=== PATIENT | female | born 1980 | race Caucasian/White ===

== ENCOUNTER → 2017-11-14 | Outpatient (CLI) | payer OTHER ==
--- NOTE | 2017-11-14 09:38 | XR ---
EXAMINATION TYPE: XR chest 2V DATE OF EXAM: 11/14/2017 COMPARISON: 06/15/2011 TECHNIQUE: PA and lateral views submitted. HISTORY: Shortness of breath FINDINGS: The lungs are clear and there is no pneumothorax, pleural effusion, or focal pneumonia. IMPRESSION: 1. No acute process.
[2017-11-14 09:55] LABS: Basophils # (A) 0.1 k/uL (0-0.2); Basophils % (A) 1 %; Eosinophils # (A) 0.1 k/uL (0-0.7); Eosinophils % (A) 1 %; HCT 44.9 % (34.0-46.0); HGB 15.4 gm/dL (11.4-16.0); Lymphocytes # (A) 2.9 k/uL (1.0-4.8); Lymphocytes % (A) 24 %; MCH 31.2 pg (25.0-35.0); MCHC 34.4 g/dL (31.0-37.0); MCV 90.6 fL (80.0-100.0); Mean Platelet Volume 6.9; Monocytes # (A) 0.6 k/uL (0-1.0); Monocytes % (A) 5 %; Neutrophils # (A) 8.4 k/uL (1.3-7.7); Neutrophils % (A) 69 %; Platelet Count 315 k/uL (150-450); RBC 4.95 m/uL (3.80-5.40); RDW 13.9 % (11.5-15.5); WBC 12.1 k/uL (3.8-10.6)
[2017-11-14 10:31] LABS: ALT 54 U/L (9-52); AST 37 U/L (14-36); Blood Urea Nitrogen 13 mg/dL (7-17)
== END | disposition home or self-care (01) ==
LOC: LABWHC1 08:59
PROVIDERS: ATTEND Physician Assistant Medical
DX: L40.0 Psoriasis vulgaris (principal)
CPT/HCPCS: 36415; 71046; 82565; 84450; 84460; 84520; 85025

== ENCOUNTER → 2018-12-12 | Outpatient (CLI) | payer OTHER ==
--- NOTE | 2018-12-12 15:38 | XR ---
EXAMINATION TYPE: XR chest 2V DATE OF EXAM: 12/12/2018 COMPARISON: NONE HISTORY: L40.0 Psoriasis vulgaris TECHNIQUE: Frontal and lateral views of the chest are obtained. FINDINGS: There is no focal air space opacity, pleural effusion, or pneumothorax seen. The cardiac silhouette size is within normal limits. The osseous structures are intact. IMPRESSION: No acute cardiopulmonary process.
== END | disposition home or self-care (01) ==
LOC: RADXRMAIN 13:34
PROVIDERS: ATTEND Dermatology MOHS-Micrographic Surgery
DX: L40.0 Psoriasis vulgaris (principal)
CPT/HCPCS: 71046

== ENCOUNTER → 2020-10-18 | Outpatient (CLI) | payer OTHER ==
[2020-10-18 12:02] LABS: Basophils # (A) 0.1 k/uL (0-0.2); Basophils % (A) 1 %; Eosinophils # (A) 0.1 k/uL (0-0.7); Eosinophils % (A) 1 %; HCT 42.8 % (34.0-46.0); HGB 14.3 gm/dL (11.4-16.0); Lymphocytes # (A) 2.4 k/uL (1.0-4.8); Lymphocytes % (A) 23 %; MCH 28.7 pg (25.0-35.0); MCHC 33.5 g/dL (31.0-37.0); MCV 85.7 fL (80.0-100.0); Mean Platelet Volume 6.5; Monocytes # (A) 0.5 k/uL (0-1.0); Monocytes % (A) 5 %; Neutrophils # (A) 7.4 k/uL (1.3-7.7); Neutrophils % (A) 70 %; Platelet Count 370 k/uL (150-450); RDW 14.3 % (11.5-15.5); WBC 10.6 k/uL (3.8-10.6)
[2020-10-18 16:09] LABS: Non-African American GFR(CKD) 79.4 (60.0-200.0)
== END | disposition home or self-care (01) ==
LOC: LABWHC1 09:45
PROVIDERS: ATTEND Physician Assistant Medical
DX: L40.0 Psoriasis vulgaris (principal)
CPT/HCPCS: 36415; 82565; 84450; 84460; 85025

== ENCOUNTER → 2021-02-21 | Outpatient (CLI) | payer OTHER ==
[2021-02-21 20:58] LABS: Basophils # (A) 0.05 X 10*3/uL (0.00-0.10); Basophils % (A) 0.5 %; Eosinophils % (A) 0.9 %; HCT 40.8 % (37.2-46.3); HGB 12.4 g/dL (12.0-15.0); Lymphocytes # (A) 1.69 X 10*3/uL (0.90-5.00); Lymphocytes % (A) 15.8 %; MCHC 30.4 g/dL (32.0-37.0); MCV 85.5 fL (80.0-97.0); Mean Platelet Volume 9.3 fL (9.5-12.2); Monocytes # (A) 0.67 X 10*3/uL (0.20-1.00); Monocytes % (A) 6.3 %; Neutrophils # (A) 8.04 X 10*3/uL (1.80-7.70); Neutrophils % (A) 75.4 %; Platelet Count 349 X 10*3/uL (140-440); RBC 4.77 X 10*6/uL (4.10-5.20); RDW 14.4 % (11.5-14.5); WBC 10.67 X 10*3/uL (4.50-10.00)
[2021-02-22 19:13] LABS: Non-African American GFR(CKD) 69.9 (60.0-200.0)
== END | disposition home or self-care (01) ==
LOC: LABWHC1 10:28
PROVIDERS: ATTEND Physician Assistant Medical
DX: L40.0 Psoriasis vulgaris (principal)
CPT/HCPCS: 36415; 82565; 84450; 84460; 85025; 86480

== ENCOUNTER 2021-07-21 15:37 | Inpatient (IN) | payer OTHER ==
--- NOTE | 2021-07-21 16:42 | ED ---
General Adult HPI - General Chief complaint: Abdominal Pain Stated complaint: abd issues Time Seen by Provider: 07/21/21 16:26 Source: patient, family (mother), RN notes reviewed, old records reviewed Mode of arrival: ambulatory - History of Present Illness Initial comments: This is a 41-year-old well-appearing, alert and oriented 4, white female that presents to the emergency room with her mother. Patient states that she's had abdominal swelling for the past couple of week. Her mother states she does have some cognitive impairment but she does live alone. She also states that in the past has been told she has a fatty liver. She denies any medical history or medications on a daily basis. She does not drink alcohol on a daily basis. She denies any abdominal pain, dysuria or fevers. She states her last bowel movement was today. Mom states that she was complaining of diarrhea since April on and off. She states that her position of comfort is semi-reclined position to help her breathe related to the abdominal swelling. -: week(s) (2) Location: abdomen Radiation: non-radiation Severity scale (1-10): 0 Consistency: constant Associated Symptoms: denies other symptoms Treatments Prior to Arrival: none - Related Data Home Medications Medication Instructions Recorded Confirmed Dulaglutide [Trulicity] 0.75 mg SQ Q7D 07/21/21 07/21/21 Risankizumab-Rzaa [Skyrizi] 150 mg SQ Q84D 07/21/21 07/21/21 Allergies Allergy/AdvReac Type Severity Reaction Status Date / Time succinylcholine Allergy Family Verified 07/21/21 18:56 History Review of Systems ROS Statement: Those systems with pertinent positive or pertinent negative responses have been documented in the HPI. ROS Other: All systems not noted in ROS Statement are negative. Past Medical History Past Medical History: Diabetes Mellitus, Skin Disorder History of Any Multi-Drug Resistant Organisms: None Reported Past Surgical History: Adenoidectomy, Tonsillectomy Past Anesthesia/Blood Transfusion Reactions: No Reported Reaction Past Psychological History: No Psychological Hx Reported General Exam Limitations: no limitations General appearance: alert, in no apparent distress Head exam: Present: atraumatic, normocephalic, normal inspection Eye exam: Present: normal appearance, PERRL, EOMI. Absent: scleral icterus, conjunctival injection, periorbital swelling ENT exam: Present: normal exam, normal oropharynx, mucous membranes moist Neck exam: Present: normal inspection, full ROM. Absent: tenderness, meningismus, lymphadenopathy Respiratory exam: Present: normal lung sounds bilaterally. Absent: respiratory distress, wheezes, rales, rhonchi, stridor, chest wall tenderness, accessory muscle use, decreased breath sounds Cardiovascular Exam: Present: tachycardia, normal heart sounds GI/Abdominal exam: Present: distended, other (Tympanic). Absent: tenderness, guarding, rebound, rigid, mass Extremities exam: Present: normal inspection, full ROM, normal capillary refill. Absent: tenderness, pedal edema, joint swelling, calf tenderness Back exam: Present: normal inspection, full ROM. Absent: tenderness, CVA tenderness (R), CVA tenderness (L) Neurological exam: Present: alert, oriented X3, CN II-XII intact Psychiatric exam: Present: normal affect, normal mood Skin exam: Present: warm, dry, intact, normal color. Absent: rash, cyanosis, diaphoretic, petechiae, pallor Course Vital Signs 07/21/21 07/21/21 07/21/21 15:54 17:46 19:14 Temperature 97.5 F L Pulse Rate 118 H 97 110 H Respiratory 16 18 18 Rate Blood Pressure 112/80 130/88 125/99 O2 Sat by Pulse 92 L 98 99 Oximetry EKG Findings - EKG Results: EKG: sinus rhythm (Ventricular rate of 118, MA interval 0.158, QRS of 0.120, QTC of 0.531 ; no old ekg) Medical Decision Making - Medical Decision Making Patient's glucose level is 232, lactic acid is 2.3 and she was given 1 L of normal saline. CT the abdomen shows a dilated large bowel consistent with a mechanical large bowel obstruction due to stricture or tumor at the junction of the descending colon and sigmoid colon, large bowel dilated to 12.5 cm. Case discussed with Dr. Lentz who requested antibiotics be started and NG tube placed. RN states that NG tube had clear fluid returned. - Lab Data Result diagrams: 07/21/21 16:51 07/21/21 16:51 Lab Results 07/21/21 07/21/21 07/21/21 Range/Units 16:51 16:51 16:51 WBC 9.7 (3.8-10.6) k/uL RBC 5.32 (3.80-5.40) m/uL Hgb 14.4 (11.4-16.0) gm/dL Hct 44.6 (34.0-46.0) % MCV 83.7 (80.0-100.0) fL MCH 27.0 (25.0-35.0) pg MCHC 32.3 (31.0-37.0) g/dL RDW 15.6 H (11.5-15.5) % Plt Count 342 (150-450) k/uL MPV 6.8 Neutrophils % 72 % Lymphocytes % 18 % Monocytes % 7 % Eosinophils % 0 % Basophils % 0 % Neutrophils # 7.0 (1.3-7.7) k/uL Lymphocytes # 1.8 (1.0-4.8) k/uL Monocytes # 0.7 (0-1.0) k/uL Eosinophils # 0.0 (0-0.7) k/uL Basophils # 0.0 (0-0.2) k/uL PT 10.2 (9.0-12.0) sec INR 0.9 (<1.2) APTT 20.8 L (22.0-30.0) sec Sodium 136 L (137-145) mmol/L Potassium 3.4 L (3.5-5.1) mmol/L Chloride 100 (98-107) mmol/L Carbon Dioxide 24 (22-30) mmol/L Anion Gap 12 mmol/L BUN 7 (7-17) mg/dL Creatinine 0.82 (0.52-1.04) mg/dL Est GFR (CKD-EPI)AfAm >90 (>60 ml/min/1.73 sqM) Est GFR (CKD-EPI)NonAf 89 (>60 ml/min/1.73 sqM) Glucose 232 H (74-99) mg/dL Lactic Ac Sepsis Rflx Plasma Lactic Acid Vicente (0.7-2.0) mmol/L Calcium 10.5 H (8.4-10.2) mg/dL Total Bilirubin 0.7 (0.2-1.3) mg/dL AST 33 (14-36) U/L ALT 20 (4-34) U/L Alkaline Phosphatase 64 (38-126) U/L Troponin I (0.000-0.034) ng/mL Total Protein 7.4 (6.3-8.2) g/dL Albumin 4.2 (3.5-5.0) g/dL Amylase 67 (30-110) U/L Lipase 215 (23-300) U/L 07/21/21 07/21/21 07/21/21 Range/Units 16:51 16:51 17:18 WBC (3.8-10.6) k/uL RBC (3.80-5.40) m/uL Hgb (11.4-16.0) gm/dL Hct (34.0-46.0) % MCV (80.0-100.0) fL MCH (25.0-35.0) pg MCHC (31.0-37.0) g/dL RDW (11.5-15.5) % Plt Count (150-450) k/uL MPV Neutrophils % % Lymphocytes % % Monocytes % % Eosinophils % % Basophils % % Neutrophils # (1.3-7.7) k/uL Lymphocytes # (1.0-4.8) k/uL Monocytes # (0-1.0) k/uL Eosinophils # (0-0.7) k/uL Basophils # (0-0.2) k/uL PT (9.0-12.0) sec INR (<1.2) APTT (22.0-30.0) sec Sodium (137-145) mmol/L Potassium (3.5-5.1) mmol/L Chloride (98-107) mmol/L Carbon Dioxide (22-30) mmol/L Anion Gap mmol/L BUN (7-17) mg/dL Creatinine (0.52-1.04) mg/dL Est GFR (CKD-EPI)AfAm (>60 ml/min/1.73 sqM) Est GFR (CKD-EPI)NonAf (>60 ml/min/1.73 sqM) Glucose (74-99) mg/dL Lactic Ac Sepsis Rflx Y Plasma Lactic Acid Vicente 2.3 H* (0.7-2.0) mmol/L Calcium (8.4-10.2) mg/dL Total Bilirubin (0.2-1.3) mg/dL AST (14-36) U/L ALT (4-34) U/L Alkaline Phosphatase (38-126) U/L Troponin I <0.012 (0.000-0.034) ng/mL Total Protein (6.3-8.2) g/dL Albumin (3.5-5.0) g/dL Amylase (30-110) U/L Lipase (23-300) U/L Disposition Clinical Impression: Large bowel obstruction Disposition: ADMITTED IP TO THIS [facility] Condition: Fair Decision Date: 07/21/21 Decision Time: 18:27
[2021-07-21 17:01] LABS: Basophils % (A) 0 %; Eosinophils % (A) 0 %; HCT 44.6 % (34.0-46.0); HGB 14.4 gm/dL (11.4-16.0); Lymphocytes # (A) 1.8 k/uL (1.0-4.8); Lymphocytes % (A) 18 %; MCHC 32.3 g/dL (31.0-37.0); MCV 83.7 fL (80.0-100.0); Mean Platelet Volume 6.8; Monocytes # (A) 0.7 k/uL (0-1.0); Monocytes % (A) 7 %; Neutrophils % (A) 72 %; Platelet Count 342 k/uL (150-450); RBC 5.32 m/uL (3.80-5.40); RDW 15.6 % (11.5-15.5); WBC 9.7 k/uL (3.8-10.6)
[2021-07-21 17:10] LABS: ALT 20 U/L (4-34); AST 33 U/L (14-36); African American GFR (CKD) >90 (>60 ml/min/1.73 sqM); Albumin 4.2 g/dL (3.5-5.0); Alkaline Phosphatase 64 U/L (38-126); Amylase 67 U/L (30-110); Anion Gap 12 mmol/L; Blood Urea Nitrogen 7 mg/dL (7-17); Calcium 10.5 mg/dL (8.4-10.2); Carbon Dioxide 24 mmol/L (22-30); Chloride 100 mmol/L (98-107); Glucose 232 mg/dL (74-99); Lipase 215 U/L (23-300); Non-African American GFR(CKD) 89 (>60 ml/min/1.73 sqM); Potassium 3.4 mmol/L (3.5-5.1); Sodium 136 mmol/L (137-145); Total Bilirubin 0.7 mg/dL (0.2-1.3); Total Protein 7.4 g/dL (6.3-8.2)
[2021-07-21] MEDS ORDERED: SODIUM CHLORIDE 0.9% 1,000 ML IV ONE (17:19)
[2021-07-21 17:28] LABS: INR 0.9 (<1.2); Prothrombin Time 10.2 sec (9.0-12.0)
[2021-07-21 17:36] LABS: Partial Thromboplastin Time 20.8 sec (22.0-30.0)
--- NOTE | 2021-07-21 18:15 | CT ---
EXAMINATION TYPE: CT abdomen pelvis wo con DATE OF EXAM: 07/21/2021 COMPARISON: August 05, 2014 HISTORY: abdominal pain, bloating CT DLP: 739 mGycm Automated exposure control for dose reduction was used. Images obtained from the diaphragm to the floor the pelvis with no contrast. FINDINGS: Lung bases are clear. There is no pleural effusion. Heart size is fairly normal. There is no pericard ial effusion. Liver spleen stomach pancreas appear intact. Bile ducts are not dilated. Gallbladder no t well seen. The bile ducts are not dilated. There is no adrenal mass. Kidneys have normal size. There is no hydronephrosis. Ureters are not dilat ed. There is no retroperitoneal adenopathy. Bladder distends smoothly. Uterus is anteverted. There is no free fluid in the pelvis. There are markedly dilated air and fluid-filled large bowel loops throughout the abdomen extending to the distal descending colon. There is transition point. The sigmoid colon has normal size. There is luminal narrowing at the junction between descending colon and sigmoid colon. Small bowel is somewhat distended. There is no evidence of free air. There is no ascites. Appendix is not seen. There is no sign of thickened appendix. Bony structures are intact. There is a first-degre e L5-S1 spondylolisthesis. There is L5 spondylolysis. The exam is limited by motion in the pelvis. IMPRESSION: Dilated large bowel consistent with mechanical large bowel obstruction due to stricture or tumor at t he junction of the descending colon and sigmoid colon. Large bowel dilated up to 12.5 cm.
[2021-07-21] MEDS ORDERED: PIPERACILLIN-TAZOBACTAM 3.375 GM in SODIUM CHLORIDE 0.9% 100 ML IVPB STA (18:26)
[2021-07-21] MEDS ORDERED: NALOXONE 0.4 MG/ML 1 ML VIAL IV PRN (18:28)
[2021-07-21] MEDS ORDERED: ONDANSETRON 4 MG/2 ML VIAL IVP PRN (18:47)
[2021-07-21] MEDS ORDERED: diphenhydrAMINE 50 MG/ML 1 ML VIAL IVP STA (20:10)
[2021-07-21] MEDS: SODIUM CHLORIDE 0.9% 1,000 ML IV SCH (20:28)
[2021-07-22] MEDS: SODIUM CHLORIDE 0.9% 1,000 ML IV SCH ×3 (04:56→17:00)
[2021-07-22] MEDS: INSULIN ASPART (NovoLOG) 100 UNIT/ML VIAL SQ SCH ×3 (06:59→16:49)
[2021-07-22] MEDS ORDERED: diphenhydrAMINE 50 MG/ML 1 ML VIAL IVP PRN (10:57)
[2021-07-22 11:35] LABS: Glucose,Whole Blood 152 mg/dL (75-99)
--- NOTE | 2021-07-22 11:39 | P.GSHP ---
History of Present Illness H&P Date: 07/22/21 Chief Complaint: Colon obstruction This a 41-year-old female who describes a several month history of intermittent colonic obstruction. Patient finally presented to emergency room with complaints of abdominal distention. She is found have a colonic obstruction with a probable obstructing lesion at the left colon. Patient denies any abdominal pain she has some complaints of GERD. Past Medical History Past Medical History: Diabetes Mellitus, Skin Disorder History of Any Multi-Drug Resistant Organisms: None Reported Past Surgical History: Adenoidectomy, Tonsillectomy Past Anesthesia/Blood Transfusion Reactions: No Reported Reaction Past Psychological History: No Psychological Hx Reported Smoking Status: Never smoker Past Alcohol Use History: None Reported Past Drug Use History: None Reported Medications and Allergies Home Medications Medication Instructions Recorded Confirmed Type Dulaglutide [Trulicity] 0.75 mg SQ Q7D 07/21/21 07/21/21 History Risankizumab-Rzaa [Skyrizi] 150 mg SQ Q84D 07/21/21 07/21/21 History Allergies Allergy/AdvReac Type Severity Reaction Status Date / Time succinylcholine Allergy Family Verified 07/21/21 18:56 History Surgical - Exam Vital Signs Temp Pulse Resp BP Pulse Ox 97.5 F L 118 H 16 112/80 92 L 07/21/21 15:54 07/21/21 15:54 07/21/21 15:54 07/21/21 15:54 07/21/21 15:54 - General well developed, well nourished, no distress - Eyes PERRL - ENT normal pinna - Neck no masses - Respiratory normal expansion - Cardiovascular Rhythm: regular - Abdomen Distended no peritoneal signs. No acute abdomen. Results - Labs 07/21/21 16:51 07/21/21 16:51 Abnormal Lab Results - Last 24 Hours (Table) 07/21/21 07/21/21 07/21/21 Range/Units 16:51 16:51 16:51 RDW 15.6 H (11.5-15.5) % APTT 20.8 L (22.0-30.0) sec Sodium 136 L (137-145) mmol/L Potassium 3.4 L (3.5-5.1) mmol/L Glucose 232 H (74-99) mg/dL POC Glucose (mg/dL) (75-99) mg/dL Plasma Lactic Acid Vicente (0.7-2.0) mmol/L Calcium 10.5 H (8.4-10.2) mg/dL 07/21/21 07/21/21 07/22/21 Range/Units 16:51 20:07 11:33 RDW (11.5-15.5) % APTT (22.0-30.0) sec Sodium (137-145) mmol/L Potassium (3.5-5.1) mmol/L Glucose (74-99) mg/dL POC Glucose (mg/dL) 152 H (75-99) mg/dL Plasma Lactic Acid Vicente 2.3 H* 2.5 H* (0.7-2.0) mmol/L Calcium (8.4-10.2) mg/dL Diabetes panel 07/21/21 Range/Units 16:51 Sodium 136 L (137-145) mmol/L Potassium 3.4 L (3.5-5.1) mmol/L Chloride 100 (98-107) mmol/L Carbon Dioxide 24 (22-30) mmol/L BUN 7 (7-17) mg/dL Creatinine 0.82 (0.52-1.04) mg/dL Glucose 232 H (74-99) mg/dL Calcium 10.5 H (8.4-10.2) mg/dL AST 33 (14-36) U/L ALT 20 (4-34) U/L Alkaline Phosphatase 64 (38-126) U/L Total Protein 7.4 (6.3-8.2) g/dL Albumin 4.2 (3.5-5.0) g/dL Calcium panel 07/21/21 Range/Units 16:51 Calcium 10.5 H (8.4-10.2) mg/dL Albumin 4.2 (3.5-5.0) g/dL Pituitary panel 07/21/21 Range/Units 16:51 Sodium 136 L (137-145) mmol/L Potassium 3.4 L (3.5-5.1) mmol/L Chloride 100 (98-107) mmol/L Carbon Dioxide 24 (22-30) mmol/L BUN 7 (7-17) mg/dL Creatinine 0.82 (0.52-1.04) mg/dL Glucose 232 H (74-99) mg/dL Calcium 10.5 H (8.4-10.2) mg/dL Adrenal panel 07/21/21 Range/Units 16:51 Sodium 136 L (137-145) mmol/L Potassium 3.4 L (3.5-5.1) mmol/L Chloride 100 (98-107) mmol/L Carbon Dioxide 24 (22-30) mmol/L BUN 7 (7-17) mg/dL Creatinine 0.82 (0.52-1.04) mg/dL Glucose 232 H (74-99) mg/dL Calcium 10.5 H (8.4-10.2) mg/dL Total Bilirubin 0.7 (0.2-1.3) mg/dL AST 33 (14-36) U/L ALT 20 (4-34) U/L Alkaline Phosphatase 64 (38-126) U/L Total Protein 7.4 (6.3-8.2) g/dL Albumin 4.2 (3.5-5.0) g/dL Assessment and Plan Assessment: Abdominal distention most likely a colonic obstruction. Patient will undergo exploratory laparotomy and possible colon resection and colostomy tomorrow
[2021-07-22] MEDS: PANTOPRAZOLE 40 MG/10 ML VIAL IVP SCH ×2 (11:58→20:24)
--- NOTE | 2021-07-22 15:34 | XR ---
EXAMINATION TYPE: XR chest 1V DATE OF EXAM: 07/22/2021 COMPARISON: 12/12/2018 HISTORY: Preop TECHNIQUE: Dual view FINDINGS: Heart and mediastinum are normal. Lungs are clear of consolidation. There is some small sadia ear density left lung base. There is nasogastric tube with the tip over the mid thoracic spine. IMPRESSION: NG tube has tip in the midesophagus. Minimal subsegmental atelectasis at the left lung ba se is new compared to old exam.
[2021-07-22 16:40] LABS: Glucose,Whole Blood 162 mg/dL (75-99)
[2021-07-22] MEDS ORDERED: BENZOCAINE SPRAY 1 CAN MUCOUS MEM PRN (18:00)
[2021-07-22] MEDS ORDERED: SODIUM CHLORIDE 0.9% 1,000 ML with POTASSIUM CHLORIDE 20 MEQ IV SCH ×2 (18:30)
--- NOTE | 2021-07-22 18:51 | CONS ---
CONSULTATION DATE OF SERVICE: 07/22/2021 REASON FOR CONSULTATION: Advice regarding diabetes and other multiple medical issues requested by Dr. Lentz. HISTORY OF PRESENT ILLNESS: This 41-year-old woman with a past history of diabetes mellitus, skin disorders, appendectomy, tonsillectomy, being followed by Dr. Hall in the outpatient setting has also had some psychiatric issues also. The patient needed some help and the patient is complaining of intermittent chronic obstruction for the last few months and subsequently patient had significant abdominal distention and the mother noticed that the patient was taken to [facility] Emergency Room and was admitted for evaluation and treatment. In the emergency room, the sodium was 130, potassium 5.5. is normal. Blood sugars 232 and calcium is 10.8 indicates some dehydration. Covid 19 is negative. The patient also had abdominal pelvis CT scan which I reviewed personally which showed dilated large bowel consistent with mechanical large bowel obstruction due to stricture or tumor at the junction of the descending and as well as sigmoid colon, large bowel dilated 12.5 cm. Patient admitted for further evaluation and treatment. A chest x-ray was also done which was reviewed personally by me showed NG otherwise mild subsegmental atelectasis in the left lung base and the EKG showed right bundle branch block. There is no history of fever, rigors. No history of headache, loss of consciousness, seizures at this time. PAST MEDICAL HISTORY: History of diabetes, history of skin disorder, history of tonsillectomy. MEDICATIONS: Prior to admission include Skirizi 150 mg Q 84 days. Trulicity 0.7 mg subcu 7 days. ALLERGIES: SUCCINYL CHOLINE. FAMILY HISTORY: No history of heart disease or strokes in the family. SOCIAL HISTORY: No history of smoking. No history of alcohol intake. REVIEW OF SYSTEMS: ENT: No diminished hearing. No diminished vision. CARDIOVASCULAR system: No angina or palpitations. RESPIRATORY: No cough. GI: As mentioned earlier. no dysuria. NERVOUS SYSTEM: No numbness or weakness. ALLERGY/IMMUNOLOGY: No asthma or hayfever. MUSCULOSKELETAL: As mentioned earlier. HEMATOLOGY/ONCOLOGY: No history of anemia. ENDOCRINE: Diabetes. CONSTITUTIONAL: As mentioned earlier. DERMATOLOGY: Negative. RHEUMATOLOGY: Negative. PSYCHIATRIC: As mentioned earlier. PHYSICAL EXAMINATION: Alert and oriented times three. Pulse 110, blood pressure 120/94, respiration 18, temperature 97.2, pulse ox 98% on room air. HEENT: Conjunctivae normal. Oral mucosa moist. NECK is no jugular venous distention. No carotid bruit. No lymph node enlargement. CARDIOVASCULAR system: S1, S2. No S3, no S4. RESPIRATORY: Breath sounds diminished in the bases. A few scattered rhonchi. ABDOMEN: Soft. Significant distention present and minimal diffuse discomfort. No guarding. No rigidity. No mass palpable. Bowel sounds diminished. LEGS: No edema. No swelling. NERVOUS SYSTEM: Higher functions as mentioned earlier. Moves all four limbs. No focal motor or sensory deficits. LYMPHATICS: No lymph nodes palpable in the neck, axillae or groin. SKIN: No ulcer, no rash and no bleeding. JOINTS: No active deforming arthropathy. LABS: WBC 9.7, hemoglobin 14.4, sodium 130, potassium 3.5. ASSESSMENT: 1. Acute large bowel obstruction possibly secondary to stricture, rule out tumor. 2. Hyponatremia. 3. Hyperkalemia. 4. Diabetes mellitus type 2 uncontrolled with hyperglycemia. 5. Dehydration, present on admission. 6. Hypercalcemia secondary to dehydration possibly. 7. Left lung atelectasis. 8. History of skin disorder. 9. History of tonsillectomy. 10.FULL CODE. RECOMMENDATIONS AND DISCUSSION: This 41-year-old woman who presented with multiple complex medical issues, at this time, I recommend continue the current medications, continue symptomatic treatment. Surgery is planning surgery tomorrow and we will monitor the blood sugars closely, which is improving. I recommend DVT prophylaxis. Incentive spirometry. Otherwise, proton pump inhibitors. We will follow the patient closely p.r.n. The patient may be asked to follow up with Dr. Hall after discharge. Incentive spirometry and further recommendations the patient follow. Thank you Dr. Lentz for letting us participate in the care of this patient. MMODL / IJN: [id number] / BLOSSOM
[2021-07-22] MEDS: HEPARIN SODIUM,PORCINE/PF 5,000 UNIT/0.5 ML SYRINGE SQ SCH (20:24)
[2021-07-23 00:01] LABS: Glucose,Whole Blood 155 mg/dL (75-99)
[2021-07-23] MEDS: INSULIN ASPART (NovoLOG) 100 UNIT/ML VIAL SQ SCH ×5 (00:12→23:32)
[2021-07-23] MEDS ORDERED: 0.9% NACL WITH KCL 20 MEQ/L 1,000 ML IV SCH (02:24)
[2021-07-23 05:52] LABS: Glucose,Whole Blood 215 mg/dL (75-99)
[2021-07-23] MEDS: HEPARIN SODIUM,PORCINE/PF 5,000 UNIT/0.5 ML SYRINGE SQ SCH ×2 (06:40→22:00)
[2021-07-23] MEDS: PANTOPRAZOLE 40 MG/10 ML VIAL IVP SCH ×2 (07:11→22:01)
[2021-07-23] MEDS ORDERED: ROCURONIUM 10 MG/ML (5 ML VIAL) IV ONE (08:25)
[2021-07-23] MEDS ORDERED: fentaNYL (PF) 50 MCG/ML 2 ML AMP ONE (08:25)
[2021-07-23] MEDS ORDERED: HYDROmorphone (PF) 1 MG/ML ONE (08:25)
[2021-07-23] MEDS ORDERED: NEOSTIGMINE 1 MG/ML 10 ML VIAL ONE (08:25)
[2021-07-23] MEDS ORDERED: GLYCOPYRROLATE 0.2 MG/ML 2 ML VIAL ONE (08:25)
[2021-07-23] MEDS ORDERED: PROPOFOL 10 MG/ML 20 ML VIAL IV ONE (08:25)
[2021-07-23] MEDS ORDERED: IV FLUID CONTINUATION 1,000 ML IV ONE (08:25)
[2021-07-23] MEDS ORDERED: LACTATED RINGERS 1,000 ML IV ONE ×2 (08:35→09:52)
[2021-07-23] MEDS ORDERED: BENZOCAINE/MENTHOL LOZENG 1 EACH LOZENGE MUCOUS MEM PRN (10:05)
--- NOTE | 2021-07-23 10:25 | P.OP ---
Date of Procedure: 07/23/21 Preoperative Diagnosis: Colonic obstruction Postoperative Diagnosis: Clot obstruction due to mass/stricture of left colon Procedure(s) Performed: Partial colectomy N colostomy Takedown of splenic flexure Anesthesia: MICHELLE Surgeon: Jerry Lentz Estimated Blood Loss (ml): 10 Pathology: other (Left colon) Condition: stable Disposition: PACU Description of Procedure: The patient's placed on the operating table in the supine position. She received general endotracheal anesthesia. Her abdomen was prepped and draped usual fashion. The abdomen was entered through a midline incision. A Bookwalter tract with wound. The colon was grossly distended. A colotomy was made in the colon decompressed the colon and then the colotomy was repaired using the TX 60 stapler. The left colon was visualized. The left colon appeared to be obstructing lesion in the area of the descending and distal left colon. The colon was mobilized and then the colon was then transected using the ANNA stapler proximal distally. The mesentery the bowel was divided using the Enseal device. Subsequent to pathology. The suture tag was placed in the proximal end of the colon. Next the splenic flexure was mobilized using the Enseal device. The colon was fully mobilized. And then the suitable spot for the colostomy in the left abdominal wall was chosen. The fascia was closed with looped #1 PDS suture. The colostomy site was then matured using 3-0 Vicryl suture. Sterile dressings was applied. Patient top she will well and sent to recovery room stable condition.
--- NOTE | 2021-07-23 10:28 | XR ---
EXAMINATION TYPE: XR chest 1V portable DATE OF EXAM: 07/23/2021 Comparison: 07/22/2021 Clinical History: 41-year-old female NEW CENTRAL LINE Findings: Right CVC tip at the lower right atrium. NG tube courses below the diaphragm. Low lung volumes with c ardiovascular markings. Interstitial densities increased as is patchy retrocardiac and left basilar o pacity. Heart borderline enlarged. No sizable effusion. Impression: 1. Right IJ CVC tip low at the inferior right atrium. 2. Worsening hypoventilatory changes. 3. Worsening interstitial density could be due to the low lung volumes. Correlate to exclude developi ng mild pulmonary vascular congestion. 3. Increased retrocardiac/left basilar atelectasis versus developing infiltrate.
[2021-07-23] MEDS ORDERED: SODIUM CHLORIDE 0.9% 1,000 ML IV ONE ×3 (10:30→10:31)
[2021-07-23 11:33] LABS: Glucose,Whole Blood 200 mg/dL (75-99)
[2021-07-23 11:53] LABS: African American GFR (CKD) 91.4 (60.0-200.0); Anion Gap 12.9 mmol/L (4.00-12.00); BUN/Creat Ratio 15.56 Ratio (12.00-20.00); Calcium 9.4 mg/dL (8.7-10.3); Carbon Dioxide 23.1 mmol/L (21.6-31.8); Non-African American GFR(CKD) 78.9 (60.0-200.0); Potassium 3.7 mmol/L (3.5-5.5)
[2021-07-23] MEDS: D5-0.45% NACL WITH KCL 20MEQ/L 1,000 ML IV SCH ×3 (12:17→22:10)
[2021-07-23 12:49] LABS: Basophils # (A) 0.03 X 10*3/uL (0.00-0.10); Basophils % (A) 0.3 %; Eosinophils # (A) 0.07 X 10*3/uL (0.04-0.35); Eosinophils % (A) 0.6 %; HCT 42.1 % (37.2-46.3); Lymphocytes # (A) 1.61 X 10*3/uL (0.90-5.00); Lymphocytes % (A) 14.6 %; MCH 26.7 pg (27.0-32.0); MCHC 30.9 g/dL (32.0-37.0); MCV 86.6 fL (80.0-97.0); Mean Platelet Volume 9.6 fL (9.5-12.2); Monocytes # (A) 0.93 X 10*3/uL (0.20-1.00); Monocytes % (A) 8.4 %; Neutrophils # (A) 8.32 X 10*3/uL (1.80-7.70); Neutrophils % (A) 75.4 %; Platelet Count 307 X 10*3/uL (140-440); RBC 4.86 X 10*6/uL (4.10-5.20); RDW 16.7 % (11.5-14.5); WBC 11.04 X 10*3/uL (4.50-10.00)
[2021-07-23] MEDS ORDERED: HEPARIN SODIUM,PORCINE/PF 5,000 UNIT/0.5 ML SYRINGE SQ SCH (16:00)
[2021-07-23 16:26] LABS: Glucose,Whole Blood 211 mg/dL (75-99)
--- NOTE | 2021-07-23 20:37 | PN ---
PROGRESS NOTE DATE OF SERVICE: 07/23/2021 This 41-year-old woman who was admitted with acute large bowel obstruction possibly secondary to stricture, had exploratory laparotomy by Dr. Lentz who found that colonic obstruction due to mass within the left colon in the area of descending and distal left colon, the patient underwent takedown splenic flexure and partial colectomy and colostomy. No chest pain. No palpitations. No fever. The patient has an NG tube. Patient is rather drowsy postop. PHYSICAL EXAMINATION: Pulse is 117. Blood pressure 133/80, respiration 20, temperature normal, pulse ox 94% on 3 L. HEENT: Conjunctivae normal. NECK: No JVD. CARDIOVASCULAR: S1, S2 muffled. RESPIRATORY: Breath sounds diminished in the bases. A few scattered rhonchi. ABDOMEN: Soft. Status post surgery. LEGS are no edema. No swelling. NERVOUS SYSTEM: No focal deficits. LAB STUDIES: WBC 7.04, sodium 143, potassium 3.7. Accu-Cheks are 211. ASSESSMENT: 1. Acute bowel obstruction with possible distal colonic obstruction status post exploratory laparotomy, partial colectomy and colostomy and takedown of splenic flexure. 2. Possible tachycardia. 3. Hyponatremia. 4. Hyperkalemia. 5. Diabetes mellitus type 2 uncontrolled with hyperglycemia previously. 6. Dehydration, present on admission. 7. Hypercalcemia secondary to dehydration possibly present on admission. 8. Left lung atelectasis. 9. History of skin disorder. 10.History of tonsillectomy. 11.FULL CODE. RECOMMENDATIONS AND DISCUSSION: I recommend to continue current medications, management and symptomatic treatment. Repeat labs. Incentive spirometry. DVT prophylaxis. Pain medications. Closely follow with surgery. Further recommendations to follow. MMODL / IJN: [id number] /
[2021-07-23] MEDS: KETOROLAC 15 MG/ML 1 ML VIAL IVP PRN (22:18)
[2021-07-23 23:29] LABS: Glucose,Whole Blood 161 mg/dL (75-99)
[2021-07-24 06:11] LABS: Glucose,Whole Blood 212 mg/dL (75-99)
[2021-07-24] MEDS: INSULIN ASPART (NovoLOG) 100 UNIT/ML VIAL SQ SCH ×3 (06:27→18:19)
[2021-07-24] MEDS: PANTOPRAZOLE 40 MG/10 ML VIAL IVP SCH ×2 (07:13→20:25)
[2021-07-24] MEDS: KETOROLAC 15 MG/ML 1 ML VIAL IVP PRN ×3 (07:23→22:02)
[2021-07-24 08:00] LABS: African American GFR (CKD) >90 (>60 ml/min/1.73 sqM); Anion Gap 6 mmol/L; Blood Urea Nitrogen 10 mg/dL (7-17); Carbon Dioxide 22 mmol/L (22-30); Chloride 109 mmol/L (98-107); Glucose 205 mg/dL (74-99); Non-African American GFR(CKD) >90 (>60 ml/min/1.73 sqM); Potassium 3.1 mmol/L (3.5-5.1); Sodium 137 mmol/L (137-145)
[2021-07-24] MEDS: D5-0.45% NACL WITH KCL 20MEQ/L 1,000 ML IV SCH ×2 (10:26→22:24)
[2021-07-24] MEDS: HEPARIN SODIUM,PORCINE/PF 5,000 UNIT/0.5 ML SYRINGE SQ SCH ×2 (10:27→20:26)
[2021-07-24] MEDS: ALVIMOPAN 12 MG CAPSULE PO SCH ×2 (10:27→20:23)
[2021-07-24 11:34] LABS: Basophils # (A) 0.03 X 10*3/uL (0.00-0.10); Basophils % (A) 0.3 %; Eosinophils # (A) 0.01 X 10*3/uL (0.04-0.35); Eosinophils % (A) 0.1 %; HGB 11.6 g/dL (12.0-15.0); Lymphocytes # (A) 0.75 X 10*3/uL (0.90-5.00); Lymphocytes % (A) 7.6 %; MCH 26.7 pg (27.0-32.0); MCHC 29.7 g/dL (32.0-37.0); MCV 89.9 fL (80.0-97.0); Monocytes # (A) 0.78 X 10*3/uL (0.20-1.00); Monocytes % (A) 7.9 %; Neutrophils # (A) 8.26 X 10*3/uL (1.80-7.70); Neutrophils % (A) 83.6 %; Platelet Count 155 X 10*3/uL (140-440); RBC 4.34 X 10*6/uL (4.10-5.20); RDW 16.3 % (11.5-14.5); WBC 9.88 X 10*3/uL (4.50-10.00)
[2021-07-24 11:43] LABS: Glucose,Whole Blood 174 mg/dL (75-99)
[2021-07-24] MEDS: POTASSIUM CHLORIDE 10 MEQ in WATER FOR INJECTION 1 100ML.BAG IVPB SCH ×4 (12:38→17:29)
--- NOTE | 2021-07-24 13:02 | P.PN ---
Subjective Progress Note Date: 07/24/21 CHIEF COMPLAINT: Colonic obstruction HISTORY OF PRESENT ILLNESS: Patient has colonic obstruction due to m ass/stricture of the left colon status post partial colectomy, colostomy and takedown of splenic flexure. Patient reports that her pain is controlled. She denies any nausea or vomiting. She is having stool through her ostomy bag. Afebrile. She does have some mild tachycardia heart rate 110. WBC 11.04-9.88 hemoglobin 13 down to 11.6 platelets 155 sodium 137 potassium 3.1 PHYSICAL EXAM: VITAL SIGNS: Reviewed. GENERAL: Well-developed in no acute distress. HEENT: No sclera icterus. Extraocular movements grossly intact. Moist buccal mucosa. Head is atraumatic, normocephalic. ABDOMEN: Soft. Distended but decrease in distention. Patient does have bleeding noted at mid abdominal incision. Otherwise no evidence of cellulitis at incision site NEUROLOGIC: Alert and oriented. Cranial nerves II through XII grossly intact. ASSESSMENT: 1. Colonic obstruction due to mass/stricture of the left colon status post partial colectomy, colostomy and takedown of splenic flexure. Postop day #1 2. Hypokalemia PLAN: -Patient received potassium supplement -Keep patient nothing by mouth except for ice chips -Continue IV fluids -Continue pain medication as needed -Encourage patient to increase activity -Encouraged patient to use incentive spirometer -Incisional dressing changed -Continue GI and DVT prophylaxis Physician Knitter Wire Mesh note has been reviewed by physician. Signing provider agrees with the documented findings, assessment, and plan of care. Objective - Vital Signs Vital signs: Vital Signs Temp 98.0 F 07/24/21 08:19 Pulse 110 H 07/24/21 08:19 Resp 17 07/24/21 08:19 BP 130/83 07/24/21 08:19 Pulse Ox 94 L 07/24/21 12:50 Intake & Output 07/23/21 07/24/21 07/24/21 18:59 06:59 18:59 Intake Total 2850 Output Total 160 2100 1200 Balance 2690 -2100 -1200 Weight 79.379 kg Intake: IV 2250 Intake, IV Titration 600 Amount 0.9% NaCl with KCl 20 Meq 600 /l 1,000 ml @ 75 mls/hr IV .[id number] [facility] Rx#: [id number] Output: Urine 110 1800 500 Uretheral (Cosme) 500 Stool 300 700 Estimated Blood Loss 50 Other: Voiding Method Indwelling Catheter Indwelling Catheter - Labs CBC & Chem 7: 07/24/21 06:07 07/24/21 07:24 Labs: Abnormal Lab Results - Last 24 Hours (Table) 07/23/21 07/23/21 07/24/21 Range/Units 16:24 23:27 06:07 Hgb 11.6 L (12.0-15.0) g/dL MCH 26.7 L (27.0-32.0) pg MCHC 29.7 L (32.0-37.0) g/dL RDW 16.3 H (11.5-14.5) % Immature Gran # 0.05 H (0.00-0.04) X 10*3/uL Neutrophils # 8.26 H (1.80-7.70) X 10*3/uL Lymphocytes # 0.75 L (0.90-5.00) X 10*3/uL Eosinophils # 0.01 L (0.04-0.35) X 10*3/uL Potassium (3.5-5.1) mmol/L Chloride (98-107) mmol/L Glucose (74-99) mg/dL POC Glucose (mg/dL) 211 H 161 H (75-99) mg/dL Calcium (8.4-10.2) mg/dL 07/24/21 07/24/21 07/24/21 Range/Units 06:09 07:24 11:41 Hgb (12.0-15.0) g/dL MCH (27.0-32.0) pg MCHC (32.0-37.0) g/dL RDW (11.5-14.5) % Immature Gran # (0.00-0.04) X 10*3/uL Neutrophils # (1.80-7.70) X 10*3/uL Lymphocytes # (0.90-5.00) X 10*3/uL Eosinophils # (0.04-0.35) X 10*3/uL Potassium 3.1 L (3.5-5.1) mmol/L Chloride 109 H (98-107) mmol/L Glucose 205 H (74-99) mg/dL POC Glucose (mg/dL) 212 H 174 H (75-99) mg/dL Calcium 8.0 L (8.4-10.2) mg/dL Microbiology - Last 24 Hours (Table) 07/21/21 20:05 Blood Culture - Preliminary Blood No Growth after 48 hours 07/21/21 20:22 Blood Culture - Preliminary Blood No Growth after 48 hours
[2021-07-24] MEDS ORDERED: Magnesium Replacement Protocol 1 EACH MISC MISCELLANE PRN (17:30)
[2021-07-24] MEDS ORDERED: Potassium Replacement Protocol 1 EACH MISC MISCELLANE PRN (17:30)
--- NOTE | 2021-07-24 17:55 | PN ---
PROGRESS NOTE DATE OF SERVICE: 07/24/2021 This 41-year-old woman was admitted with colonic obstruction and had surgery. The biopsies are pending. No chest pain. No palpitations. No fever. Patient has NG tube. PHYSICAL EXAMINATION: Alert and oriented x2. Pulse 110, blood pressure 130/80, respiration 17, temperature 98 degrees, pulse ox 94% on 2 L HEENT: Conjunctivae normal. Oral mucosa moist. NECK: No jugular venous distention. No lymph node enlargement. CARDIOVASCULAR: S1, S2, muffled. No S3, no S4, RESPIRATORY: Diminished breath sounds at the bases. A few scattered rhonchi. ABDOMEN: Soft, status post surgery. LEGS: No edema, no swelling. NERVOUS SYSTEM: No focal deficits. LABS: Potassium 3.1, hemoglobin 11.6. ASSESSMENT: 1. Acute bowel obstruction, possible distal colonic obstruction status post exploratory laparotomy, partial colectomy and colostomy and takedown splenic flexure. 2. Postoperative tachycardia. 3. Hyponatremia. 4. Hypokalemia, currently. 5. Diabetes mellitus type 2, uncontrolled with hyperglycemia previously. 6. Dehydration, present on admission. 7. Hypercalcemia secondary to dehydration possibly present on admission. 8. Left lung atelectasis. 9. History of skin disorder. 10.History of tonsillectomy. 11.FULL CODE. RECOMMENDATIONS AND DISCUSSION: I recommend to continue current management, continue symptomatic treatment. Otherwise, at this time I recommend continue the current medications. Repeat labs. Monitor closely. Prognosis guarded. Further recommendations to follow. MMBRYCEL / GRACIELAN: [id number] /
[2021-07-24 17:58] LABS: Glucose,Whole Blood 160 mg/dL (75-99)
[2021-07-25 00:03] LABS: Glucose,Whole Blood 178 mg/dL (75-99)
[2021-07-25] MEDS: INSULIN ASPART (NovoLOG) 100 UNIT/ML VIAL SQ SCH ×5 (00:56→22:02)
[2021-07-25] MEDS: POTASSIUM CHLORIDE 10 MEQ in WATER FOR INJECTION 1 100ML.BAG IVPB SCH ×8 (02:58→16:00)
[2021-07-25] MEDS: D5-0.45% NACL WITH KCL 20MEQ/L 1,000 ML IV SCH ×2 (05:15→12:30)
[2021-07-25 05:59] LABS: Glucose,Whole Blood 145 mg/dL (75-99)
[2021-07-25] MEDS: ALVIMOPAN 12 MG CAPSULE PO SCH (08:56)
[2021-07-25] MEDS: PANTOPRAZOLE 40 MG/10 ML VIAL IVP SCH ×2 (09:02→22:02)
[2021-07-25] MEDS: HEPARIN SODIUM,PORCINE/PF 5,000 UNIT/0.5 ML SYRINGE SQ SCH ×2 (09:02→22:02)
[2021-07-25 11:35] LABS: Glucose,Whole Blood 196 mg/dL (75-99)
[2021-07-25 12:06] LABS: Basophils # (A) 0.02 X 10*3/uL (0.00-0.10); Basophils % (A) 0.2 %; Eosinophils # (A) 0.02 X 10*3/uL (0.04-0.35); Eosinophils % (A) 0.2 %; HCT 35.6 % (37.2-46.3); HGB 11.6 g/dL (12.0-15.0); Lymphocytes # (A) 0.81 X 10*3/uL (0.90-5.00); Lymphocytes % (A) 7.7 %; MCH 26.9 pg (27.0-32.0); MCHC 32.6 g/dL (32.0-37.0); MCV 82.4 fL (80.0-97.0); Mean Platelet Volume 9.6 fL (9.5-12.2); Monocytes # (A) 0.59 X 10*3/uL (0.20-1.00); Monocytes % (A) 5.6 %; Neutrophils # (A) 8.98 X 10*3/uL (1.80-7.70); Neutrophils % (A) 85.7 %; Platelet Count 221 X 10*3/uL (140-440); RBC 4.32 X 10*6/uL (4.10-5.20); RDW 15.7 % (11.5-14.5); WBC 10.48 X 10*3/uL (4.50-10.00)
--- NOTE | 2021-07-25 14:17 | P.PN ---
Subjective Progress Note Date: 07/25/21 CHIEF COMPLAINT: Colonic obstruction HISTORY OF PRESENT ILLNESS: Patient has colonic obstruction due to m ass/stricture of the left colon status post partial colectomy, colostomy and takedown of splenic flexure. Patient reports that her pain is controlled. She denies any nausea or vomiting. Her ostomy is functioning. Afebrile. She does have some mild tachycardia heart rate 109. WBC 9.88 up to 10.48 hemoglobin 11.6 potassium 3.1 magnesium pending PHYSICAL EXAM: VITAL SIGNS: Reviewed. GENERAL: Well-developed in no acute distress. HEENT: No sclera icterus. Extraocular movements grossly intact. Moist buccal mucosa. Head is atraumatic, normocephalic. ABDOMEN: Soft. Abdominal distention is decreased. Dressing is clean dry and intact. Ostomy is functioning. NEUROLOGIC: Alert and oriented. Cranial nerves II through XII grossly intact. ASSESSMENT: 1. Colonic obstruction due to mass/stricture of the left colon status post partial colectomy, colostomy and takedown of splenic flexure. Postop day #2 2. Hypokalemia PLAN: -Discontinue NG tube -Discontinue Cosme catheter -Start clear liquid diet -Patient is receiving potassium supplement -Continue IV fluids -Continue pain medication as needed -Encourage patient to increase activity -Encouraged patient to use incentive spirometer -Continue GI and DVT prophylaxis Physician Percher note has been reviewed by physician. Signing provider agrees with the documented findings, assessment, and plan of care. Objective - Vital Signs Vital signs: Vital Signs Temp 98.6 F 07/25/21 13:26 Pulse 109 H 07/25/21 13:26 Resp 16 07/25/21 13:26 BP 106/71 07/25/21 13:26 Pulse Ox 96 07/25/21 13:26 Intake & Output 07/24/21 07/25/21 07/25/21 18:59 06:59 18:59 Output Total 1700 2550 520 Balance -1700 -2550 -520 Output: Urine 750 1650 320 Uretheral (Cosme) 500 320 Stool 950 900 200 Other: Voiding Method Indwelling Catheter Indwelling Catheter Indwelling Catheter - Labs CBC & Chem 7: 07/25/21 06:07 07/25/21 06:07 Labs: Abnormal Lab Results - Last 24 Hours (Table) 07/24/21 07/24/21 07/25/21 Range/Units 17:57 19:55 00:02 WBC (4.50-10.00) X 10*3/uL Hgb (12.0-15.0) g/dL Hct (37.2-46.3) % MCH (27.0-32.0) pg RDW (11.5-14.5) % Immature Gran # (0.00-0.04) X 10*3/uL Neutrophils # (1.80-7.70) X 10*3/uL Lymphocytes # (0.90-5.00) X 10*3/uL Eosinophils # (0.04-0.35) X 10*3/uL Potassium 3.2 L (3.5-5.1) mmol/L POC Glucose (mg/dL) 160 H 178 H (75-99) mg/dL 07/25/21 07/25/21 07/25/21 Range/Units 00:31 05:57 06:07 WBC 10.48 H (4.50-10.00) X 10*3/uL Hgb 11.6 L (12.0-15.0) g/dL Hct 35.6 L (37.2-46.3) % MCH 26.9 L (27.0-32.0) pg RDW 15.7 H (11.5-14.5) % Immature Gran # 0.06 H (0.00-0.04) X 10*3/uL Neutrophils # 8.98 H (1.80-7.70) X 10*3/uL Lymphocytes # 0.81 L (0.90-5.00) X 10*3/uL Eosinophils # 0.02 L (0.04-0.35) X 10*3/uL Potassium 3.2 L (3.5-5.1) mmol/L POC Glucose (mg/dL) 145 H (75-99) mg/dL 07/25/21 07/25/21 Range/Units 06:07 11:21 WBC (4.50-10.00) X 10*3/uL Hgb (12.0-15.0) g/dL Hct (37.2-46.3) % MCH (27.0-32.0) pg RDW (11.5-14.5) % Immature Gran # (0.00-0.04) X 10*3/uL Neutrophils # (1.80-7.70) X 10*3/uL Lymphocytes # (0.90-5.00) X 10*3/uL Eosinophils # (0.04-0.35) X 10*3/uL Potassium 3.1 L (3.5-5.1) mmol/L POC Glucose (mg/dL) 196 H (75-99) mg/dL Microbiology - Last 24 Hours (Table) 07/21/21 20:05 Blood Culture - Preliminary Blood No Growth after 72 hours 07/21/21 20:22 Blood Culture - Preliminary Blood No Growth after 72 hours
[2021-07-25 14:43] VITALS: BMI 27.3
[2021-07-25 15:28] LABS: African American GFR (CKD) 130.3 (60.0-200.0); Anion Gap 10.8 mmol/L (4.00-12.00); BUN/Creat Ratio 13.33 Ratio (12.00-20.00); Calcium 7.9 mg/dL (8.7-10.3); Carbon Dioxide 22.2 mmol/L (21.6-31.8); Magnesium 1.4 mg/dL (1.5-2.4); Non-African American GFR(CKD) 112.4 (60.0-200.0); Potassium 3.2 mmol/L (3.5-5.5)
[2021-07-25] MEDS ORDERED: Magnesium Replacement Protocol 1 EACH MISC MISCELLANE PRN (15:38)
[2021-07-25] MEDS ORDERED: Potassium Replacement Protocol 1 EACH MISC MISCELLANE PRN (15:38)
--- NOTE | 2021-07-25 16:28 | PN ---
PROGRESS NOTE DATE OF SERVICE: 07/25/2021 This 41-year-old woman who was admitted with acute bowel obstruction had surgery. The patient is still with NG tube. No chest pain. No palpitations. No fever. PHYSICAL EXAMINATION: Alert and oriented x_3. Pulse is 109, blood pressure 106/79, respiration 16, temperature 98.6, pulse ox 96% on room air. HEENT: Conjunctivae normal. NECK: No jugular venous distention. CARDIOVASCULAR: S1, S2 muffled. RESPIRATION: Breath sounds diminished at the bases. A few rhonchi. ABDOMEN: Soft. Status post surgery. LEGS: No edema. No swelling. NERVOUS SYSTEM: No focal deficit. LAB STUDIES: WBC 10.2, hemoglobin 11.6, potassium 3.1, magnesium 1.4. ASSESSMENT: 1. Acute bowel obstruction, possible distal colonic obstruction, status post exploratory laparotomy, partial colectomy, colostomy and takedown of splenic flexure. 2. Postoperative tachycardia. 3. Hypokalemia. 4. Hyponatremia. 5. Hypomagnesemia. 6. Diabetes mellitus, type 2, uncontrolled, with hyperglycemia previously. 7. Dehydration, present on admission. 8. Hypercalcemia secondary to dehydration, present on admission. 9. Left lung atelectasis. 10.History of skin disorder. 11.History of tonsillectomy. 12.FULL CODE. RECOMMENDATIONS AND DISCUSSION: I recommend to continue current medications, continue with symptomatic treatment. I would recommend repeat labs. Supplement potassium, magnesium. Closely follow. Guarded prognosis. Further recommendations to follow. Add potassium to the IV fluids, also. MMODL / IJN: [id number] / BLOSSOM
[2021-07-25 16:37] LABS: Glucose,Whole Blood 171 mg/dL (75-99)
[2021-07-25 21:42] LABS: Glucose,Whole Blood 220 mg/dL (75-99)
[2021-07-25] MEDS: D5-0.45% NACL WITH KCL 40MEQ/L 1,000 ML IV SCH (22:03)
[2021-07-25] MEDS ORDERED: KETOROLAC 15 MG/ML 1 ML VIAL IVP PRN (22:35)
[2021-07-26] MEDS: ACETAMINOPHEN IV (For NPO) 1,000 MG in EMPTY BAG 1 BAG IVPB SCH ×4 (02:42→22:41)
[2021-07-26 07:12] LABS: Glucose,Whole Blood 195 mg/dL (75-99)
[2021-07-26] MEDS: INSULIN ASPART (NovoLOG) 100 UNIT/ML VIAL SQ SCH ×4 (07:38→20:54)
[2021-07-26] MEDS: D5-0.45% NACL WITH KCL 40MEQ/L 1,000 ML IV SCH ×2 (07:49→19:24)
[2021-07-26] MEDS: HEPARIN SODIUM,PORCINE/PF 5,000 UNIT/0.5 ML SYRINGE SQ SCH ×2 (09:01→20:54)
[2021-07-26] MEDS: PANTOPRAZOLE 40 MG/10 ML VIAL IVP SCH ×2 (09:02→20:55)
[2021-07-26 09:34] LABS: Basophils # (A) 0.02 X 10*3/uL (0.00-0.10); Basophils % (A) 0.3 %; Eosinophils # (A) 0.07 X 10*3/uL (0.04-0.35); Eosinophils % (A) 0.9 %; HCT 33.9 % (37.2-46.3); HGB 11.1 g/dL (12.0-15.0); Lymphocytes # (A) 0.91 X 10*3/uL (0.90-5.00); Lymphocytes % (A) 11.9 %; MCH 26.7 pg (27.0-32.0); MCHC 32.7 g/dL (32.0-37.0); MCV 81.5 fL (80.0-97.0); Mean Platelet Volume 9.2 fL (9.5-12.2); Monocytes # (A) 0.44 X 10*3/uL (0.20-1.00); Monocytes % (A) 5.8 %; Neutrophils # (A) 6.16 X 10*3/uL (1.80-7.70); Neutrophils % (A) 80.6 %; Platelet Count 239 X 10*3/uL (140-440); RBC 4.16 X 10*6/uL (4.10-5.20); RDW 15.5 % (11.5-14.5); WBC 7.64 X 10*3/uL (4.50-10.00)
[2021-07-26 10:53] LABS: African American GFR (CKD) 130.3 (60.0-200.0); Anion Gap 7.7 mmol/L (4.00-12.00); BUN/Creat Ratio 13.33 Ratio (12.00-20.00); Carbon Dioxide 26.3 mmol/L (21.6-31.8); Magnesium 1.5 mg/dL (1.5-2.4); Non-African American GFR(CKD) 112.4 (60.0-200.0); Potassium 2.8 mmol/L (3.5-5.5)
[2021-07-26 11:27] LABS: Glucose,Whole Blood 221 mg/dL (75-99)
[2021-07-26] MEDS: POTASSIUM CHLORIDE 20 MEQ in WATER FOR INJECTION 1 100ML.BAG IVPB SCH ×3 (12:49→16:46)
--- NOTE | 2021-07-26 12:53 | P.PN ---
Subjective Progress Note Date: 07/26/21 CHIEF COMPLAINT: Colonic obstruction HISTORY OF PRESENT ILLNESS: Patient has colonic obstruction due to m ass/stricture of the left colon status post partial colectomy, colostomy and takedown of splenic flexure. Patient reports that her pain is controlled. Her ostomy is functioning. She did have one episode of emesis. She had a temp of 100.3 early this morning with mild tachycardia. WBC 10.48 down to 7.64 hemoglobin 11.1 platelets 239 sodium 136 potassium 2.8 creatinine 0.6 magnesium 1.5 PHYSICAL EXAM: VITAL SIGNS: Reviewed. GENERAL: Well-developed in no acute distress. HEENT: No sclera icterus. Extraocular movements grossly intact. Moist buccal mucosa. Head is atraumatic, normocephalic. ABDOMEN: Soft. Abdominal distention is decreased. Few areas of blood saturation noted on dressing. Otherwise incision is clean dry and intact. Ostomy is functioning. NEUROLOGIC: Alert and oriented. Cranial nerves II through XII grossly intact. ASSESSMENT: 1. Colonic obstruction due to mass/stricture of the left colon status post partial colectomy, colostomy and takedown of splenic flexure. Postop day #3 2. Hypokalemia PLAN: -Continue clear liquid diet -Patient is receiving potassium and magnesium supplement -Continue IV fluids -Continue pain medication as needed -Encourage patient to increase activity -Patient and mom received ostomy teaching today by ostomy nurse -Encouraged patient to use incentive spirometer -Continue GI and DVT prophylaxis Physician Customer Service Associate note has been reviewed by physician. Signing provider agrees with the documented findings, assessment, and plan of care. Objective - Vital Signs Vital signs: Vital Signs Temp 98.0 F 07/26/21 08:06 Pulse 88 07/26/21 08:06 Resp 16 07/26/21 08:06 BP 100/65 07/26/21 08:06 Pulse Ox 96 07/26/21 08:06 Intake & Output 07/25/21 07/26/21 07/26/21 18:59 06:59 18:59 Intake Total 1800 Output Total 820 900 350 Balance -820 900 -350 Weight 79.379 kg Intake: Intake, IV Titration 1000 Amount D5-0.45% NaCl with KCl 1000 40Meq/l 1,000 ml @ 75 mls /hr IV .[id number] [facility] Rx#: [id number] Oral 800 Output: Urine 320 Uretheral (Cosme) 320 Stool 500 900 250 Emesis 100 Other: Voiding Method Indwelling Catheter # Voids 1 3 # Bowel Movements 200 - Labs CBC & Chem 7: 07/26/21 05:50 07/26/21 05:50 Labs: Abnormal Lab Results - Last 24 Hours (Table) 07/25/21 07/25/21 07/25/21 Range/Units 06:07 16:36 21:21 Hgb (12.0-15.0) g/dL Hct (37.2-46.3) % MCH (27.0-32.0) pg RDW (11.5-14.5) % MPV (9.5-12.2) fL Potassium 3.2 L (3.5-5.5) mmol/L BUN 8.0 L (9.0-27.0) mg/dL Glucose 139 H (70-110) mg/dL POC Glucose (mg/dL) 171 H 220 H (75-99) mg/dL Calcium 7.9 L (8.7-10.3) mg/dL Magnesium 1.4 L (1.5-2.4) mg/dL 07/26/21 07/26/21 07/26/21 Range/Units 05:50 05:50 07:08 Hgb 11.1 L (12.0-15.0) g/dL Hct 33.9 L (37.2-46.3) % MCH 26.7 L (27.0-32.0) pg RDW 15.5 H (11.5-14.5) % MPV 9.2 L (9.5-12.2) fL Potassium 2.8 L (3.5-5.5) mmol/L BUN 8.0 L (9.0-27.0) mg/dL Glucose 178 H (70-110) mg/dL POC Glucose (mg/dL) 195 H (75-99) mg/dL Calcium 8.0 L (8.7-10.3) mg/dL Magnesium (1.5-2.4) mg/dL 07/26/21 Range/Units 11:25 Hgb (12.0-15.0) g/dL Hct (37.2-46.3) % MCH (27.0-32.0) pg RDW (11.5-14.5) % MPV (9.5-12.2) fL Potassium (3.5-5.5) mmol/L BUN (9.0-27.0) mg/dL Glucose (70-110) mg/dL POC Glucose (mg/dL) 221 H (75-99) mg/dL Calcium (8.7-10.3) mg/dL Magnesium (1.5-2.4) mg/dL Microbiology - Last 24 Hours (Table) 07/21/21 20:05 Blood Culture - Preliminary Blood No Growth after 96 hours 07/21/21 20:22 Blood Culture - Preliminary Blood No Growth after 96 hours
[2021-07-26] MEDS: MAGNESIUM SULFATE-D5W PMX 1 GM in DEXTROSE/WATER 1 100ML.BAG IVPB SCH ×2 (15:45→16:45)
[2021-07-26 16:27] LABS: Glucose,Whole Blood 172 mg/dL (75-99)
[2021-07-26 20:06] LABS: Glucose,Whole Blood 181 mg/dL (75-99)
--- NOTE | 2021-07-26 21:50 | P.PN ---
Subjective Progress Note Date: 07/26/21 This is a pleasant 41 year old female who is evaluated today post operative day #3 partial colectomy, colostomy, and takedown on splenic flexure for a colonic obstruction due a mass/stricture of the left colon. Pt received ostomy education, and was instructed how to change and care for appliance today with her mother present. Pt worked with PT today, and reported that she felt weak and tired during PT and wanted to remain in bed. She denies any chest pain, cough, or SOB. She is tolerating a clear liquid diet, and denies n/v. Colostomy has large amounts of liquid bowel movement. Potassium today was 2.8, magnesium 1.5; both were replaced per protocol. hgb today is 11.1, which is stable. Patients ideas are flighty and it is difficult to illicit a full review of systems. Patients mother states that patient will be returning home with her on discharge and she will need a prescription for the patients trulicity. T-Max in the last 24 hours is 100.3; otherwise afebrile. HR is 93, normal sinus rhythm, and BP is 100/65. Pt is currently receiving D5 1/2 ns with potassium at 75 cc per hr. Pt had a urinalysis with reflex to culture from 07/22 that was not collected. ROS - was difficult to obtain due to patients psyche Cardiovascular: Denies chest pain, Denies palpitations Respiratory: Denies cough GI: Denies n/v, reports diarrhea via ostomy : Denies dysuria, burning, urgency, frequency. Reports oncoming menses. Musculoskeletal: Reports weakness/fatigue when working with PT Neurological: Denies numbness/tingling in extremities Objective - Vital Signs Vital signs: Vital Signs Temp 98.0 F 07/26/21 08:06 Pulse 88 07/26/21 08:06 Resp 16 07/26/21 08:06 BP 100/65 07/26/21 08:06 Pulse Ox 96 07/26/21 08:06 Intake & Output 07/25/21 07/26/21 07/26/21 18:59 06:59 18:59 Intake Total 1800 Output Total 820 900 Balance -820 900 Weight 79.379 kg Intake: Intake, IV Titration 1000 Amount D5-0.45% NaCl with KCl 1000 40Meq/l 1,000 ml @ 75 mls /hr IV .[id number] [facility] Rx#: [id number] Oral 800 Output: Urine 320 Uretheral (Cosme) 320 Stool 500 900 Other: Voiding Method Indwelling Catheter # Voids 1 3 # Bowel Movements 200 - Constitutional General appearance: Present: average body habitus - EENT Eyes: Present: EOMI, PERRLA ENT: Present: hearing grossly normal - Respiratory Respiratory: negative: rhonchi, wheezing (lungs clear to auscultation) - Cardiovascular Rhythm: regular Heart sounds: normal: S1, S2 - Gastrointestinal General gastrointestinal: Present: decreased bowel sounds, tenderness - Neurologic Neurologic: Present: CNII-XII intact - Psychiatric Psychiatric Comment(s): Pts thought process was flightly, difficult to hold attention, jumped ideas alot, was unable to focus on a pertinent topic Psychiatric: Present: A&O x's 3 - Labs CBC & Chem 7: 07/26/21 05:50 07/26/21 05:50 Labs: Abnormal Lab Results - Last 24 Hours (Table) 07/25/21 07/25/21 07/25/21 Range/Units 06:07 06:07 11:21 WBC 10.48 H (4.50-10.00) X 10*3/uL Hgb 11.6 L (12.0-15.0) g/dL Hct 35.6 L (37.2-46.3) % MCH 26.9 L (27.0-32.0) pg RDW 15.7 H (11.5-14.5) % MPV (9.5-12.2) fL Immature Gran # 0.06 H (0.00-0.04) X 10*3/uL Neutrophils # 8.98 H (1.80-7.70) X 10*3/uL Lymphocytes # 0.81 L (0.90-5.00) X 10*3/uL Eosinophils # 0.02 L (0.04-0.35) X 10*3/uL Potassium 3.2 L (3.5-5.5) mmol/L BUN 8.0 L (9.0-27.0) mg/dL Glucose 139 H (70-110) mg/dL POC Glucose (mg/dL) 196 H (75-99) mg/dL Calcium 7.9 L (8.7-10.3) mg/dL Magnesium 1.4 L (1.5-2.4) mg/dL 07/25/21 07/25/21 07/26/21 Range/Units 16:36 21:21 05:50 WBC (4.50-10.00) X 10*3/uL Hgb 11.1 L (12.0-15.0) g/dL Hct 33.9 L (37.2-46.3) % MCH 26.7 L (27.0-32.0) pg RDW 15.5 H (11.5-14.5) % MPV 9.2 L (9.5-12.2) fL Immature Gran # (0.00-0.04) X 10*3/uL Neutrophils # (1.80-7.70) X 10*3/uL Lymphocytes # (0.90-5.00) X 10*3/uL Eosinophils # (0.04-0.35) X 10*3/uL Potassium (3.5-5.5) mmol/L BUN (9.0-27.0) mg/dL Glucose (70-110) mg/dL POC Glucose (mg/dL) 171 H 220 H (75-99) mg/dL Calcium (8.7-10.3) mg/dL Magnesium (1.5-2.4) mg/dL 07/26/21 07/26/21 07/26/21 Range/Units 05:50 07:08 11:25 WBC (4.50-10.00) X 10*3/uL Hgb (12.0-15.0) g/dL Hct (37.2-46.3) % MCH (27.0-32.0) pg RDW (11.5-14.5) % MPV (9.5-12.2) fL Immature Gran # (0.00-0.04) X 10*3/uL Neutrophils # (1.80-7.70) X 10*3/uL Lymphocytes # (0.90-5.00) X 10*3/uL Eosinophils # (0.04-0.35) X 10*3/uL Potassium 2.8 L (3.5-5.5) mmol/L BUN 8.0 L (9.0-27.0) mg/dL Glucose 178 H (70-110) mg/dL POC Glucose (mg/dL) 195 H 221 H (75-99) mg/dL Calcium 8.0 L (8.7-10.3) mg/dL Magnesium (1.5-2.4) mg/dL Microbiology - Last 24 Hours (Table) 07/21/21 20:05 Blood Culture - Preliminary Blood No Growth after 96 hours 07/21/21 20:22 Blood Culture - Preliminary Blood No Growth after 96 hours Assessment and Plan Assessment: 1. Acute bowel obstruction, possible distal colonic obstruction, status post exploratory laporotomy, partial colectomy, colostomy, and takedown of splenic flexure 2. Postoperative tachycardia, improving with hydration 3. Hypokalemia d/t liquid stool, colectomy - 2.8, replace per protocol and recheck. 4. Hyponatremia, repleted current level 136 5. Hypomagnesemia, 1.5 replace per protocol 6. Diabetes Mellitus Type 2, uncontrolled, withy hyperglycemia previously 7. Dehydration, present on admission 8. Hypercalcemia s/t dehydration, present on admission, improving 9. Left lung atelectasis, encourage IS 10.History of skin disorderer 11.History of tonsillectomy 12.FULL CODE Plan: Replace magnesium and potassium per protocol, potassium has been added to the IV fluid. Follow with repeat labs in the AM. Continue to monitor blood sugars, accuchecks ACHS and novolog sliding scale. Home diabetic meds remain on hold. Continue to encourage ambulation, continue to encourage IS. Monitor vital signs. All other recommendations per surgery, thank you for this consultation. Discharge planning in progress; currently plan is for pt to return home with mother who will assist pt in care of the colostomy and surgery recovery. Time with Patient: Greater than 30
[2021-07-26] MEDS ORDERED: Potassium Replacement Protocol 1 EACH MISC MISCELLANE PRN (23:18)
[2021-07-26] MEDS: POTASSIUM CHLORIDE 10 MEQ in WATER FOR INJECTION 1 100ML.BAG IVPB SCH (23:51)
[2021-07-27] MEDS: POTASSIUM CHLORIDE 10 MEQ in WATER FOR INJECTION 1 100ML.BAG IVPB SCH ×5 (01:13→05:39)
[2021-07-27 06:55] LABS: Glucose,Whole Blood 140 mg/dL (75-99)
[2021-07-27] MEDS: HEPARIN SODIUM,PORCINE/PF 5,000 UNIT/0.5 ML SYRINGE SQ SCH ×2 (08:22→21:59)
[2021-07-27] MEDS: PANTOPRAZOLE 40 MG/10 ML VIAL IVP SCH ×2 (08:22→21:59)
[2021-07-27] MEDS: D5-0.45% NACL WITH KCL 40MEQ/L 1,000 ML IV SCH ×2 (08:23→22:01)
[2021-07-27] MEDS: INSULIN ASPART (NovoLOG) 100 UNIT/ML VIAL SQ SCH ×4 (08:23→22:00)
[2021-07-27 08:55] LABS: African American GFR (CKD) >90 (>60 ml/min/1.73 sqM); Anion Gap 9 mmol/L; Blood Urea Nitrogen 9 mg/dL (7-17); Calcium 8.3 mg/dL (8.4-10.2); Carbon Dioxide 22 mmol/L (22-30); Chloride 101 mmol/L (98-107); Glucose 151 mg/dL (74-99); Magnesium 1.8 mg/dL (1.6-2.3); Non-African American GFR(CKD) >90 (>60 ml/min/1.73 sqM); Potassium 3.2 mmol/L (3.5-5.1); Sodium 132 mmol/L (137-145)
[2021-07-27] MEDS: MAGNESIUM SULFATE-D5W PMX 1 GM in DEXTROSE/WATER 1 100ML.BAG IVPB SCH ×2 (10:49→12:17)
[2021-07-27] MEDS: POTASSIUM CHLORIDE ER 20 MEQ TAB.ER PO SCH ×3 (10:49→11:52)
[2021-07-27 11:22] LABS: Glucose,Whole Blood 137 mg/dL (75-99)
[2021-07-27] MEDS ORDERED: Potassium Replacement Protocol 1 EACH MISC MISCELLANE PRN (11:48)
--- NOTE | 2021-07-27 14:00 | P.PN ---
Subjective Progress Note Date: 07/27/21 CHIEF COMPLAINT: Colonic obstruction HISTORY OF PRESENT ILLNESS: Patient has colonic obstruction due to m ass/stricture of the left colon status post partial colectomy, colostomy and takedown of splenic flexure. 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 Positive for focal paraneural invasion. Dr. Lentz did discuss pathology results with patient's mom. Patient is having purulent drainage from the mid incision. She denies any nausea or vomiting. Her ostomy is functioning. She denies any nausea or vomiting. Afebrile. Sodium 132 potassium is 3.2 creatinine 0.7 magnesium 1.8 PHYSICAL EXAM: VITAL SIGNS: Reviewed. GENERAL: Well-developed in no acute distress. HEENT: No sclera icterus. Extraocular movements grossly intact. Moist buccal mucosa. Head is atraumatic, normocephalic. ABDOMEN: Soft. Abdominal distention is decreased. Purulent drainage from the mid incision. No erythema. Ostomy functioning. NEUROLOGIC: Alert and oriented. Cranial nerves II through XII grossly intact. ASSESSMENT: 1. Colonic obstruction due to mass/stricture of the left colon status post partial colectomy, colostomy and takedown of splenic flexure. Postop day #4 2. Hypokalemia PLAN: -2 elliot removed from mid incision patient had about 10 ml of purulent fluid drained out. ABG dressing and gauze applied to incision. -Patient started on IV antibiotics for infection at incision site -Recommend that patient follows up with oncology after discharge for her positive pathology of adenocarcinoma -Advance diet to full liquids -Patient is receiving potassium supplement -Continue IV fluids -Continue pain medication as needed -Encourage patient to ambulate in hallway -Encouraged patient to use incentive spirometer -Continue GI and DVT prophylaxis Physician Electronic Sensing Equipment Assembler note has been reviewed by physician. Signing provider agrees with the documented findings, assessment, and plan of care. Objective - Vital Signs Vital signs: Vital Signs Temp 97.8 F 07/27/21 07:07 Pulse 96 07/27/21 07:07 Resp 18 07/27/21 07:07 BP 100/64 07/27/21 07:07 Pulse Ox 95 07/27/21 07:07 Intake & Output 07/26/21 07/27/21 07/27/21 18:59 06:59 18:59 Intake Total 360 Output Total 650 100 Balance -650 260 Intake: Oral 360 Output: Stool 550 100 Emesis 100 - Labs CBC & Chem 7: 07/26/21 05:50 07/27/21 07:50 Labs: Abnormal Lab Results - Last 24 Hours (Table) 07/26/21 07/26/21 07/26/21 Range/Units 16:12 20:04 22:18 Sodium (137-145) mmol/L Potassium 2.9 L (3.5-5.1) mmol/L Glucose (74-99) mg/dL POC Glucose (mg/dL) 172 H 181 H (75-99) mg/dL Calcium (8.4-10.2) mg/dL 07/27/21 07/27/21 07/27/21 Range/Units 06:48 07:50 11:18 Sodium 132 L (137-145) mmol/L Potassium 3.2 L (3.5-5.1) mmol/L Glucose 151 H (74-99) mg/dL POC Glucose (mg/dL) 140 H 137 H (75-99) mg/dL Calcium 8.3 L (8.4-10.2) mg/dL Microbiology - Last 24 Hours (Table) 07/21/21 20:22 Blood Culture - Preliminary Blood No Growth after 120 hours 07/21/21 20:05 Blood Culture - Preliminary Blood No Growth after 120 hours
--- NOTE | 2021-07-27 14:08 | P.PN ---
Subjective Progress Note Date: 07/27/21 This is a pleasant 41 year old female who is evaluated today post operative day #3 partial colectomy, colostomy, and takedown on splenic flexure for a colonic obstruction due a mass/stricture of the left colon. Pt received ostomy education, and was instructed how to change and care for appliance today with her mother present. Pt worked with PT today, and reported that she felt weak and tired during PT and wanted to remain in bed. She denies any chest pain, cough, or SOB. She is tolerating a clear liquid diet, and denies n/v. Colostomy has large amounts of liquid bowel movement. Potassium today was 2.8, magnesium 1.5; both were replaced per protocol. hgb today is 11.1, which is stable. Patients ideas are flighty and it is difficult to illicit a full review of systems. Patients mother states that patient will be returning home with her on discharge and she will need a prescription for the patients trulicity. T-Max in the last 24 hours is 100.3; otherwise afebrile. HR is 93, normal sinus rhythm, and BP is 100/65. Pt is currently receiving D5 1/2 ns with potassium at 75 cc per hr. Pt had a urinalysis with reflex to culture from 07/22 that was not collected. 07/27/2021 Patient is evaluated today resting in bed. Patient states that when she is up sitting in the chair she feels faint, and she wishes to rest in bed. Patient reports using her IS. Patient continues to have large amounts of liquid stool from her colostomy. She states that she is getting every 1-1/2-2 hours. Patient's potassium today was 3.2, she refuses oral supplementation, IV has been ordered per protocol. In addition patient's magnesium level was found to be 1.8 which was replaced per protocol as well. Sodium level today is 132, most likely hypovolemic due to diarrhea and decreased oral intake. Patient will continue on IV fluids. Prior to this admission patient states that she was living in a home with some roommates, who did the cooking and cleaning around the house. She states that they were using her as her and her mother took care of the financial for the house. She states that for about a month prior to admission she noted having liquid bowel movements and her abdomen Growing larger and larger, before she came into the ER to be evaluated. She was not checking her blood sugars and was not compliant with her diabetic medication regularly. She also reports that she was in college however she had some difficulties with her studies and not doing her homework, she had a medical evaluation and since then she has been receiving SSI disability. Patient does state that she had a seizure disorder as a child however she has not been on seizure medication for quite some time. Patient denies any other psychiatric diagnoses. Plan is for patient to return home with her mother on discharge will assist with her daily care in regards to the colostomy. ROS - was difficult to obtain due to patients psyche Cardiovascular: Denies chest pain, Denies palpitations Respiratory: Denies cough GI: Denies n/v, reports diarrhea via ostomy : Denies dysuria, burning, urgency, frequency. Reports oncoming menses. Musculoskeletal: Reports weakness/fatigue when working with PT Neurological: Denies numbness/tingling in extremities PHYSICAL EXAMINATION: GENERAL: The patient is alert and oriented x3, not in any acute distress. Well developed, well nourished. HEENT: Pupils are round and equally reacting to light. EOMI. No scleral icterus. No conjunctival pallor. Normocephalic, atraumatic. No pharyngeal erythema. No thyromegaly. CARDIOVASCULAR: S1 and S2 present. No murmurs, rubs, or gallops. PULMONARY: Chest is clear to auscultation, no wheezing or crackles. ABDOMEN: Soft, tender postsurgical abdomen, nondistended, hyperactive bowel sounds MUSCULOSKELETAL: No joint swelling or deformity. EXTREMITIES: No cyanosis, clubbing, or pedal edema. NEUROLOGICAL: Gross neurological examination did not reveal any focal deficits. SKIN: No rashes. Assessment and plan Assessment 1. Acute bowel obstruction, possible distal colonic obstruction, status postop day #4 exploratory laparotomy, partial colectomy, colostomy and takedown of splenic flexure 2. Postoperative tachycardia, improved 3. Hypokalemia, 3.2 replaced per protocol 4. Hyponatremia, hypovolemic, continue to monitor trends, continue with IV fluids 5. Hypomagnesemia, replacement protocol 6. Diabetes mellitus type 2 uncontrolled hyperglycemia previously continue with before meals at bedtime and coverage 7. Dehydration present on admission 8. Hypercalcemia secondary to dehydration, present on admission 9. Left lung atelectasis. Please continue with IS 10. History of skin disorder 11. History of tonsillectomy 12. Leukocytosis, reactive, resolved 13. Anemia, most likely blood loss related to surgery, hemoglobin stable at 11.1, no signs of bleeding continue to follow 12. Full Code Plan Patient is postop day #4 partial colectomy with colostomy. Please continue to replace lites per protocol. Patient continues with liquid stool via colostomy, she remains on a D5 half-normal saline with potassium drip at 75. Continue to encourage ambulation, and IS. Discharge planning is in place for patient to go home with her mother who help with care of the ostomy. We will continue to follow along to monitor patient's other chronic conditions. Please check an orthostatic blood pressure. Thank you for this consultation. Objective - Vital Signs Vital signs: Vital Signs Temp 97.8 F 07/27/21 07:07 Pulse 96 07/27/21 07:07 Resp 18 07/27/21 07:07 BP 100/64 07/27/21 07:07 Pulse Ox 95 07/27/21 07:07 Intake & Output 07/26/21 07/27/21 07/27/21 18:59 06:59 18:59 Intake Total 360 Output Total 650 100 Balance -650 260 Intake: Oral 360 Output: Stool 550 100 Emesis 100 - Labs CBC & Chem 7: 07/26/21 05:50 07/27/21 07:50 Labs: Abnormal Lab Results - Last 24 Hours (Table) 07/26/21 07/26/21 07/26/21 Range/Units 05:50 11:25 16:12 Sodium (137-145) mmol/L Potassium 2.8 L (3.5-5.5) mmol/L BUN 8.0 L (9.0-27.0) mg/dL Glucose 178 H (70-110) mg/dL POC Glucose (mg/dL) 221 H 172 H (75-99) mg/dL Calcium 8.0 L (8.7-10.3) mg/dL 07/26/21 07/26/21 07/27/21 Range/Units 20:04 22:18 06:48 Sodium (137-145) mmol/L Potassium 2.9 L (3.5-5.5) mmol/L BUN (9.0-27.0) mg/dL Glucose (70-110) mg/dL POC Glucose (mg/dL) 181 H 140 H (75-99) mg/dL Calcium (8.7-10.3) mg/dL 07/27/21 Range/Units 07:50 Sodium 132 L (137-145) mmol/L Potassium 3.2 L (3.5-5.5) mmol/L BUN (9.0-27.0) mg/dL Glucose 151 H (70-110) mg/dL POC Glucose (mg/dL) (75-99) mg/dL Calcium 8.3 L (8.7-10.3) mg/dL Microbiology - Last 24 Hours (Table) 07/21/21 20:22 Blood Culture - Preliminary Blood No Growth after 120 hours 07/21/21 20:05 Blood Culture - Preliminary Blood No Growth after 120 hours
[2021-07-27] MEDS: POTASSIUM CHLORIDE 20 MEQ in WATER FOR INJECTION 1 100ML.BAG IVPB SCH ×3 (14:11→23:45)
[2021-07-27] MEDS: PIPERACILLIN-TAZOBACTAM 3.375 GM in SODIUM CHLORIDE 0.9% 100 ML IVPB SCH ×2 (14:12→21:59)
[2021-07-27 16:37] LABS: Glucose,Whole Blood 170 mg/dL (75-99)
[2021-07-27 20:50] LABS: Glucose,Whole Blood 139 mg/dL (75-99)
[2021-07-28] MEDS: PIPERACILLIN-TAZOBACTAM 3.375 GM in SODIUM CHLORIDE 0.9% 100 ML IVPB SCH ×3 (05:14→20:32)
[2021-07-28] MEDS: D5-0.45% NACL WITH KCL 40MEQ/L 1,000 ML IV SCH (05:17)
[2021-07-28 07:03] LABS: Glucose,Whole Blood 159 mg/dL (75-99)
[2021-07-28] MEDS: PANTOPRAZOLE 40 MG/10 ML VIAL IVP SCH ×2 (08:34→20:31)
[2021-07-28] MEDS: HEPARIN SODIUM,PORCINE/PF 5,000 UNIT/0.5 ML SYRINGE SQ SCH ×2 (08:34→20:33)
[2021-07-28] MEDS: INSULIN ASPART (NovoLOG) 100 UNIT/ML VIAL SQ SCH ×4 (08:34→21:55)
[2021-07-28 09:05] LABS: Basophils # (A) 0.02 X 10*3/uL (0.00-0.10); Basophils % (A) 0.2 %; Eosinophils # (A) 0.09 X 10*3/uL (0.04-0.35); Eosinophils % (A) 0.8 %; HCT 35.6 % (37.2-46.3); HGB 11.6 g/dL (12.0-15.0); Lymphocytes # (A) 1.14 X 10*3/uL (0.90-5.00); Lymphocytes % (A) 10.4 %; MCH 26.6 pg (27.0-32.0); MCHC 32.6 g/dL (32.0-37.0); MCV 81.7 fL (80.0-97.0); Mean Platelet Volume 8.9 fL (9.5-12.2); Monocytes # (A) 0.73 X 10*3/uL (0.20-1.00); Monocytes % (A) 6.6 %; Neutrophils # (A) 8.94 X 10*3/uL (1.80-7.70); Neutrophils % (A) 81.2 %; Platelet Count 293 X 10*3/uL (140-440); RBC 4.36 X 10*6/uL (4.10-5.20); RDW 15.9 % (11.5-14.5); WBC 11.01 X 10*3/uL (4.50-10.00)
[2021-07-28 11:45] LABS: Glucose,Whole Blood 198 mg/dL (75-99)
--- NOTE | 2021-07-28 14:11 | P.PN ---
Subjective Progress Note Date: 07/28/21 CHIEF COMPLAINT: Colonic obstruction HISTORY OF PRESENT ILLNESS: Patient has colonic obstruction due to m ass/stricture of the left colon status post partial colectomy, colostomy and takedown of splenic flexure. 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 Positive for focal paraneural invasion. Dr. Lentz did discuss pathology results with patient's mom. Patient is having purulent drainage from the mid incision. Patient had 2 elliot removed from her incision. Cultures of drainage obtained. And she was started on antibiotics. Patient reports improvement in her abdominal pain. She is tolerating full liquid diet. She denies any nausea or vomiting. Her ostomy is functioning. Afebrile. WBC 11.01 hemoglobin 11.6 platelets 293 BMP and magnesium pending PHYSICAL EXAM: VITAL SIGNS: Reviewed. GENERAL: Well-developed in no acute distress. HEENT: No sclera icterus. Extraocular movements grossly intact. Moist buccal mucosa. Head is atraumatic, normocephalic. ABDOMEN: Soft. Abdominal distention is decreased. Purulent drainage from the mid incision. No erythema. Ostomy functioning. NEUROLOGIC: Alert and oriented. Cranial nerves II through XII grossly intact. ASSESSMENT: 1. Colonic obstruction due to mass/stricture of the left colon status post partial colectomy, colostomy and takedown of splenic flexure. Postop day #5 2. Hypokalemia 3. Infection at abdominal incision site PLAN: -Patient started on IV antibiotics for infection at incision site -Recommend that patient follows up with oncology after discharge for her positive pathology of adenocarcinoma -Continue full liquids -Continue IV fluids -Continue pain medication as needed -Encourage patient to ambulate in hallway -Encouraged patient to use incentive spirometer -Continue GI and DVT prophylaxis Physician Proof Technician note has been reviewed by physician. Signing provider agrees with the documented findings, assessment, and plan of care. Objective - Vital Signs Vital signs: Vital Signs Temp 98.2 F 07/28/21 07:32 Pulse 86 07/28/21 07:55 Resp 16 07/28/21 07:55 BP 99/64 07/28/21 07:32 Pulse Ox 98 07/28/21 07:32 Intake & Output 07/27/21 07/28/21 07/28/21 18:59 06:59 18:59 Intake Total 360 Output Total 200 300 Balance 160 -300 Weight 79.379 kg Intake: Oral 360 Output: Stool 200 300 Other: Voiding Method Indwelling Catheter # Voids 4 - Labs CBC & Chem 7: 07/28/21 06:05 07/27/21 07:50 Labs: Abnormal Lab Results - Last 24 Hours (Table) 07/27/21 07/27/21 07/28/21 Range/Units 16:33 20:47 06:05 WBC 11.01 H (4.50-10.00) X 10*3/uL Hgb 11.6 L (12.0-15.0) g/dL Hct 35.6 L (37.2-46.3) % MCH 26.6 L (27.0-32.0) pg RDW 15.9 H (11.5-14.5) % MPV 8.9 L (9.5-12.2) fL Immature Gran # 0.09 H (0.00-0.04) X 10*3/uL Neutrophils # 8.94 H (1.80-7.70) X 10*3/uL POC Glucose (mg/dL) 170 H 139 H (75-99) mg/dL 07/28/21 07/28/21 Range/Units 06:47 11:39 WBC (4.50-10.00) X 10*3/uL Hgb (12.0-15.0) g/dL Hct (37.2-46.3) % MCH (27.0-32.0) pg RDW (11.5-14.5) % MPV (9.5-12.2) fL Immature Gran # (0.00-0.04) X 10*3/uL Neutrophils # (1.80-7.70) X 10*3/uL POC Glucose (mg/dL) 159 H 198 H (75-99) mg/dL Microbiology - Last 24 Hours (Table) 07/21/21 20:05 Blood Culture - Final Blood No Growth after 144 hours 07/21/21 20:22 Blood Culture - Final Blood No Growth after 144 hours
[2021-07-28] MEDS: D5-0.9% NACL WITH KCL 20 MEQ/L 1,000 ML IV SCH (16:12)
[2021-07-28 16:33] LABS: Glucose,Whole Blood 177 mg/dL (75-99)
[2021-07-28 17:07] LABS: African American GFR (CKD) 130.3 (60.0-200.0); Anion Gap 9.2 mmol/L (4.00-12.00); Calcium 8.4 mg/dL (8.7-10.3); Carbon Dioxide 22.8 mmol/L (21.6-31.8); Non-African American GFR(CKD) 112.4 (60.0-200.0); Potassium 3.6 mmol/L (3.5-5.5)
[2021-07-28 20:53] LABS: Glucose,Whole Blood 135 mg/dL (75-99)
--- NOTE | 2021-07-28 20:53 | P.PN ---
Subjective Progress Note Date: 07/28/21 This is a pleasant 41 year old female who is evaluated today post operative day #3 partial colectomy, colostomy, and takedown on splenic flexure for a colonic obstruction due a mass/stricture of the left colon. Pt received ostomy education, and was instructed how to change and care for appliance today with her mother present. Pt worked with PT today, and reported that she felt weak and tired during PT and wanted to remain in bed. She denies any chest pain, cough, or SOB. She is tolerating a clear liquid diet, and denies n/v. Colostomy has large amounts of liquid bowel movement. Potassium today was 2.8, magnesium 1.5; both were replaced per protocol. hgb today is 11.1, which is stable. Patients ideas are flighty and it is difficult to illicit a full review of systems. Patients mother states that patient will be returning home with her on discharge and she will need a prescription for the patients trulicity. T-Max in the last 24 hours is 100.3; otherwise afebrile. HR is 93, normal sinus rhythm, and BP is 100/65. Pt is currently receiving D5 1/2 ns with potassium at 75 cc per hr. Pt had a urinalysis with reflex to culture from 07/22 that was not collected. 07/27/2021 Patient is evaluated today resting in bed. Patient states that when she is up sitting in the chair she feels faint, and she wishes to rest in bed. Patient reports using her IS. Patient continues to have large amounts of liquid stool from her colostomy. She states that she is getting every 1-1/2-2 hours. Patient's potassium today was 3.2, she refuses oral supplementation, IV has been ordered per protocol. In addition patient's magnesium level was found to be 1.8 which was replaced per protocol as well. Sodium level today is 132, most likely hypovolemic due to diarrhea and decreased oral intake. Patient will continue on IV fluids. Prior to this admission patient states that she was living in a home with some roommates, who did the cooking and cleaning around the house. She states that they were using her as her and her mother took care of the financial for the house. She states that for about a month prior to admission she noted having liquid bowel movements and her abdomen Growing larger and larger, before she came into the ER to be evaluated. She was not checking her blood sugars and was not compliant with her diabetic medication regularly. She also reports that she was in college however she had some difficulties with her studies and not doing her homework, she had a medical evaluation and since then she has been receiving SSI disability. Patient does state that she had a seizure disorder as a child however she has not been on seizure medication for quite some time. Patient denies any other psychiatric diagnoses. Plan is for patient to return home with her mother on discharge will assist with her daily care in regards to the colostomy. 07/28/2021 Patient is resting in bed, she denies any n/v today. Reports liquid stool from the ostomy. Patient had a staple removed from midline surgical incision. There is some surrounding erythema and purulent drainage noted which was cultured from surgical services. They added on IV Abx. Today pt has a wbc of 11.1, hgb of 11.6, potassium of 3.6, and magnesium of 2.0. Blood sugars remain elevated in the 170s. Vital signs include temp 97.5, t-max of 99.9 in the last 24 hours, hr 81 sinus rhythm, BP 137/83. Pt reports that she does not like getting up and working with PT. She reports using her IS. ROS - was difficult to obtain due to patients psyche Cardiovascular: Denies chest pain, Denies palpitations Respiratory: Denies cough GI: Denies n/v, reports diarrhea via ostomy, denies abdominal pain : Denies dysuria, burning, urgency, frequency. Musculoskeletal: Reports weakness/fatigue when working with PT Neurological: Denies numbness/tingling in extremities PHYSICAL EXAMINATION: GENERAL: The patient is alert and oriented x3, not in any acute distress. Well developed, well nourished. HEENT: Pupils are round and equally reacting to light. EOMI. No scleral icterus. No conjunctival pallor. Normocephalic, atraumatic. No pharyngeal erythema. No thyromegaly. CARDIOVASCULAR: S1 and S2 present. No murmurs, rubs, or gallops. PULMONARY: Chest is clear to auscultation, no wheezing or crackles. ABDOMEN: Soft, tender postsurgical abdomen, nondistended, hyperactive bowel sounds MUSCULOSKELETAL: No joint swelling or deformity. EXTREMITIES: No cyanosis, clubbing, or pedal edema. NEUROLOGICAL: Gross neurological examination did not reveal any focal deficits. SKIN: No rashes. purulent pocket midline surgical incision Assessment and plan Assessment 1. Acute bowel obstruction, possible distal colonic obstruction, status postop day #4 exploratory laparotomy, partial colectomy, colostomy and takedown of splenic flexure 2. Postoperative tachycardia, improved 3. Hypokalemia, 3.2 replaced per protocol 4. Hyponatremia, hypovolemic, continue to monitor trends, continue with IV fluids 5. Hypomagnesemia, replacement protocol 6. Diabetes mellitus type 2 uncontrolled hyperglycemia previously continue with before meals at bedtime and coverage 7. Dehydration present on admission 8. Hypercalcemia secondary to dehydration, present on admission, improved 9. Left lung atelectasis. Please continue with IS 10. History of skin disorder 11. History of tonsillectomy 12. Leukocytosis, possibly related to surgical site infection, on IV abx. Encourage IS. 13. Anemia, most likely blood loss related to surgery, hemoglobin stable at 11.6, no signs of bleeding continue to follow 14. Surgical Site infection, Cultures pending, IV Abx 15. Invasive moderately differentiated colonic adenocarcinoma, all margins viable, benign and negative for malignancy. Positive for focal perineural invasion. 16. Twelve Colonic lymph nodes, all negative for metastatic carcinoma --- patient needs to follow with oncology on discharge Full Code GI Prophylaxis - IVP Protonix DVT Prophylaxis - SQ heparin Plan Patient is postop day #5 partial colectomy with colostomy. Please continue to replace lites per protocol. Patient continues with liquid stool via colostomy, she remains on a D5 half-normal saline with potassium drip at 75. Continue to encourage ambulation, and IS. Discharge planning is in place for patient to go home with her mother who help with care of the ostomy. We will continue to follow along to monitor patient's other chronic conditions. Please check an orthostatic blood pressure. Thank you for this consultation. Objective - Vital Signs Vital signs: Vital Signs Temp 98.2 F 07/28/21 07:32 Pulse 86 07/28/21 07:55 Resp 16 07/28/21 07:55 BP 99/64 07/28/21 07:32 Pulse Ox 98 07/28/21 07:32 Intake & Output 07/27/21 07/28/21 07/28/21 18:59 06:59 18:59 Intake Total 360 Output Total 200 300 Balance 160 -300 Weight 79.379 kg Intake: Oral 360 Output: Stool 200 300 Other: Voiding Method Indwelling Catheter # Voids 4 - Labs CBC & Chem 7: 07/28/21 06:05 07/28/21 06:05 Labs: Abnormal Lab Results - Last 24 Hours (Table) 07/27/21 07/27/21 07/28/21 Range/Units 16:33 20:47 06:05 WBC 11.01 H (4.50-10.00) X 10*3/uL Hgb 11.6 L (12.0-15.0) g/dL Hct 35.6 L (37.2-46.3) % MCH 26.6 L (27.0-32.0) pg RDW 15.9 H (11.5-14.5) % MPV 8.9 L (9.5-12.2) fL Immature Gran # 0.09 H (0.00-0.04) X 10*3/uL Neutrophils # 8.94 H (1.80-7.70) X 10*3/uL POC Glucose (mg/dL) 170 H 139 H (75-99) mg/dL 07/28/21 07/28/21 Range/Units 06:47 11:39 WBC (4.50-10.00) X 10*3/uL Hgb (12.0-15.0) g/dL Hct (37.2-46.3) % MCH (27.0-32.0) pg RDW (11.5-14.5) % MPV (9.5-12.2) fL Immature Gran # (0.00-0.04) X 10*3/uL Neutrophils # (1.80-7.70) X 10*3/uL POC Glucose (mg/dL) 159 H 198 H (75-99) mg/dL Microbiology - Last 24 Hours (Table) 07/21/21 20:05 Blood Culture - Final Blood No Growth after 144 hours 07/21/21 20:22 Blood Culture - Final Blood No Growth after 144 hours
[2021-07-28] MEDS: POTASSIUM CHLORIDE 10 MEQ in WATER FOR INJECTION 1 100ML.BAG IVPB SCH ×2 (21:56→23:06)
[2021-07-29] MEDS: D5-0.9% NACL WITH KCL 20 MEQ/L 1,000 ML IV SCH (02:03)
[2021-07-29] MEDS: PIPERACILLIN-TAZOBACTAM 3.375 GM in SODIUM CHLORIDE 0.9% 100 ML IVPB SCH ×2 (04:21→12:42)
[2021-07-29 07:09] LABS: Glucose,Whole Blood 160 mg/dL (75-99)
[2021-07-29] MEDS: INSULIN ASPART (NovoLOG) 100 UNIT/ML VIAL SQ SCH ×2 (08:38→12:43)
[2021-07-29] MEDS: HEPARIN SODIUM,PORCINE/PF 5,000 UNIT/0.5 ML SYRINGE SQ SCH (08:38)
[2021-07-29] MEDS: PANTOPRAZOLE 40 MG/10 ML VIAL IVP SCH (08:38)
[2021-07-29 08:49] VITALS: BP 109/71; PULSE 89; RESP 18; TEMP 97.6
[2021-07-29 11:03] LABS: Basophils # (A) 0.03 X 10*3/uL (0.00-0.10); Basophils % (A) 0.4 %; Eosinophils # (A) 0.13 X 10*3/uL (0.04-0.35); Eosinophils % (A) 1.6 %; HCT 33.4 % (37.2-46.3); HGB 10.9 g/dL (12.0-15.0); Lymphocytes # (A) 1.29 X 10*3/uL (0.90-5.00); Lymphocytes % (A) 15.8 %; MCH 26.5 pg (27.0-32.0); MCHC 32.6 g/dL (32.0-37.0); MCV 81.1 fL (80.0-97.0); Mean Platelet Volume 9.3 fL (9.5-12.2); Monocytes # (A) 0.54 X 10*3/uL (0.20-1.00); Monocytes % (A) 6.6 %; Neutrophils # (A) 6.03 X 10*3/uL (1.80-7.70); Neutrophils % (A) 73.6 %; Platelet Count 278 X 10*3/uL (140-440); RBC 4.12 X 10*6/uL (4.10-5.20); RDW 15.9 % (11.5-14.5); WBC 8.18 X 10*3/uL (4.50-10.00)
[2021-07-29 12:06] LABS: Glucose,Whole Blood 144 mg/dL (75-99)
--- NOTE | 2021-07-29 12:09 | P.PN ---
Subjective Progress Note Date: 07/29/21 Principal diagnosis: Colon obstruction Patient doing well today. Pain is well-controlled. She is tolerating her diet. She would like to go home today. Objective - Vital Signs Vital signs: Vital Signs Temp 97.6 F 07/29/21 08:48 Pulse 89 07/29/21 08:48 Resp 18 07/29/21 08:48 BP 109/71 07/29/21 08:48 Pulse Ox 97 07/29/21 08:48 Intake & Output 07/28/21 07/29/21 07/29/21 18:59 06:59 18:59 Other: Voiding Method Indwelling Catheter # Voids 5 - Exam Abdomen: Soft, nondistended, incision clean and dry, ostomy functioning - Labs CBC & Chem 7: 07/29/21 07:13 07/28/21 06:05 Labs: Abnormal Lab Results - Last 24 Hours (Table) 07/28/21 07/28/21 07/28/21 Range/Units 06:05 16:27 20:50 Hgb (12.0-15.0) g/dL Hct (37.2-46.3) % MCH (27.0-32.0) pg RDW (11.5-14.5) % MPV (9.5-12.2) fL Immature Gran # (0.00-0.04) X 10*3/uL BUN 6.0 L (9.0-27.0) mg/dL BUN/Creatinine Ratio 10.00 L (12.00-20.00) Ratio Glucose 156 H (70-110) mg/dL POC Glucose (mg/dL) 177 H 135 H (75-99) mg/dL Calcium 8.4 L (8.7-10.3) mg/dL 07/29/21 07/29/21 07/29/21 Range/Units 07:08 07:13 12:05 Hgb 10.9 L (12.0-15.0) g/dL Hct 33.4 L (37.2-46.3) % MCH 26.5 L (27.0-32.0) pg RDW 15.9 H (11.5-14.5) % MPV 9.3 L (9.5-12.2) fL Immature Gran # 0.16 H (0.00-0.04) X 10*3/uL BUN (9.0-27.0) mg/dL BUN/Creatinine Ratio (12.00-20.00) Ratio Glucose (70-110) mg/dL POC Glucose (mg/dL) 160 H 144 H (75-99) mg/dL Calcium (8.7-10.3) mg/dL Microbiology - Last 24 Hours (Table) 07/28/21 09:20 Gram Stain - Preliminary Abdomen Wound Culture - Preliminary Assessment and Plan (1) Large bowel obstruction Narrative/Plan: Patient doing better. Will plan discharge today. Follow-up as outpatient. Current Visit: Yes Status: Acute Code(s): K56.609 - UNSP INTESTNL OBST, UNSP TO PARTIAL VERSUS COMPLETE OBST SNOMED Code(s): 125468225
[2021-07-29 13:07] LABS: African American GFR (CKD) 138.4 (60.0-200.0); Anion Gap 10.6 mmol/L (4.00-12.00); Calcium 8.4 mg/dL (8.7-10.3); Carbon Dioxide 21.4 mmol/L (21.6-31.8); Non-African American GFR(CKD) 119.4 (60.0-200.0); Potassium 3.6 mmol/L (3.5-5.5)
--- NOTE | 2021-07-29 15:39 | PN ---
PROGRESS NOTE DATE OF SERVICE: 07/29/2021 This 41-year-old woman who was admitted after bowel obstruction had surgery. The biopsy came back positive for adenocarcinoma. No chest pain. No palpitations. No fever. PHYSICAL EXAMINATION: Alert and oriented x3. Pulse is 89, blood pressure 109/71, respiration 18, temperature 97.6, pulse ox 97% on room air. HEENT: Conjunctivae normal. NECK: No jugular venous distention. CARDIOVASCULAR: S1, S2 muffled. RESPIRATION: Breath sounds diminished at the bases. ABDOMEN: Soft. Status post surgery. LEGS: No edema. No swelling. NERVOUS SYSTEM: No focal deficit. LABS: WBC 8.1, hemoglobin 10.9. Sodium 139, potassium 3.6 and glucose 160. ASSESSMENT: 1. Acute bowel obstruction, possible distal colonic obstruction, status post exploratory laparotomy, partial colectomy, colostomy and takedown of splenic flexure. 2. Adenocarcinoma of the colon. 3. Postoperative tachycardia, improved. 4. Hypokalemia. 5. Hyponatremia. 6. Hypomagnesemia. 7. Diabetes mellitus, type 2, uncontrolled with hyperglycemia previously. 8. Dehydration, present on admission, improved. 9. Hypercalcemia secondary dehydration, present on admission. 10.Left lung atelectasis. 11.History of skin cancer. 12.History of tonsillectomy. 13.FULL CODE. RECOMMENDATIONS AND DISCUSSION: I recommend to continue current medications, continue with symptomatic treatment. Resume the home medications. Incentive spirometry. The rest of the recommendations per Surgery. Closely follow with the primary physician in the outpatient setting. Monitor blood sugars closely. Results of the Accu-Chek before meals and at bedtime to be given to Dr. Hall. Continue with Drake. Further recommendations to follow. MMODL / IJN: [id number] /
== END 2021-07-29 16:51 | disposition home health service (06) | DRG 330 ==
LOC: EC 15:37 → 4SSUR 18:52
PROVIDERS: ADMIT Surgery; ATTEND Surgery
PROC: 0D9770Z Drainage of Stomach, Pylorus with Drainage Device, Via Natural or Artificial Opening (ICD-10-PCS; 2021-07-23)
PROC: 0DTG0ZZ Resection of Left Large Intestine, Open Approach (ICD-10-PCS; principal; 2021-07-23 08:00)
DX: C18.6 Malignant neoplasm of descending colon (principal); E87.1 Hypo-osmolality and hyponatremia; K56.699 Other intestinal obstruction unspecified as to partial versus complete obstruction; T81.41XA Infection following a procedure, superficial incisional surgical site, initial encounter; J98.11 Atelectasis; D72.829 Elevated white blood cell count, unspecified; E11.65 Type 2 diabetes mellitus with hyperglycemia; L98.9 Disorder of the skin and subcutaneous tissue, unspecified; D64.9 Anemia, unspecified; I45.10 Unspecified right bundle-branch block; K21.9 Gastro-esophageal reflux disease without esophagitis; Z20.822 Contact with and (suspected) exposure to COVID-19; E87.6 Hypokalemia; R00.0 Tachycardia, unspecified; K76.0 Fatty (change of) liver, not elsewhere classified; E83.42 Hypomagnesemia; E83.52 Hypercalcemia; E86.0 Dehydration; E86.1 Hypovolemia; E87.5 Hyperkalemia; G40.909 Epilepsy, unspecified, not intractable, without status epilepticus; Z85.828 Personal history of other malignant neoplasm of skin; Z91.14 Patient's other noncompliance with medication regimen; Y65.8 Other specified misadventures during surgical and medical care
CPT/HCPCS: 36415; 71045; 74176; 80048; 80053; 81025; 82150; 83605; 83690; 83735; 84132; 84484; 85025; 85610; 85730; 87040; 87070; 87077; 87186; 87205; 87635; 88309; 93005; 94760; 96360; 99285

== ENCOUNTER → 2022-01-24 | Outpatient (CLI) | payer OTHER ==
--- NOTE | 2022-01-24 08:39 | US ---
EXAMINATION TYPE: US abdomen complete DATE OF EXAM: 01/24/2022 COMPARISON: NONE CLINICAL HISTORY: R10.9 ABD/PELVIC PAIN. patient has colon cancer and currently going through chemo, ostomy bad is "hurting" abd EXAM MEASUREMENTS: Liver Length: 17.4 cm Gallbladder Wall: 0.3 cm CBD: 0.5 cm Spleen: 10.6 cm Right Kidney: 10.6 x 4.7 x 5.0 cm Left Kidney: 10.6 x 4.8 x 5.4 cm Pancreas: wnl Liver: wnl Gallbladder: wnl Evidence for sonographic Ojeda's sign: no CBD: wnl Spleen: wnl Right Kidney: wnl Left Kidney: wnl Upper IVC: wnl Abd Aorta: proximal portion obscured IMPRESSION: 1. No suspicious ultrasound abnormality within the abdomen.
== END | disposition home or self-care (01) ==
LOC: RADUSWWP 08:07
PROVIDERS: ATTEND Internal Medicine Hematology & Oncology
DX: C18.8 Malignant neoplasm of overlapping sites of colon (principal)
CPT/HCPCS: 76700

== ENCOUNTER → 2022-04-26 | Outpatient (CLI) | payer OTHER ==
[2022-04-26 14:11] LABS: HCT 41.9 % (37.2-46.3); HGB 14.2 g/dL (12.0-15.0); MCH 31.1 pg (27.0-32.0); MCHC 33.9 g/dL (32.0-37.0); MCV 91.9 fL (80.0-97.0); Mean Platelet Volume 8.4 fL (9.5-12.2); NRBC Per 100 WBC 0 /100 WBCS (0.0-0.0); Platelet Count 228 X 10*3/uL (140-440); RBC 4.56 X 10*6/uL (4.10-5.20); RDW 12.2 % (11.5-14.5); WBC 8.93 X 10*3/uL (4.50-10.00)
[2022-04-26 18:47] LABS: African American GFR (CKD) 117.5 (60.0-200.0); Anion Gap 12.3 mmol/L (10.00-18.00); BUN/Creat Ratio 21.05 Ratio (12.00-20.00); Blood Urea Nitrogen 15.3 mg/dL (9.0-27.0); Calcium 9.6 mg/dL (8.7-10.3); Carbon Dioxide 24.6 mmol/L (20.0-27.5); Non-African American GFR(CKD) 101.4 (60.0-200.0); Potassium 4.3 mmol/L (3.5-5.5)
== END | disposition home or self-care (01) ==
LOC: LABWHC1 10:31
DX: Z01.812 Encounter for preprocedural laboratory examination (principal)
CPT/HCPCS: 36415; 80048; 83036; 85027; 86850; 86900; 86901

== ENCOUNTER → 2022-09-05 | Outpatient (CLI) | payer OTHER ==
[2022-09-05 14:54] LABS: African American GFR (CKD) 155.1 (60.0-200.0); Non-African American GFR(CKD) 133.8 (60.0-200.0)
== END | disposition home or self-care (01) ==
LOC: LABWHC1 09:26
PROVIDERS: ATTEND Physician Assistant Medical
DX: L40.0 Psoriasis vulgaris (principal)
CPT/HCPCS: 36415; 82565; 84450; 84460; 86480

== ENCOUNTER → 2023-04-19 | Outpatient (CLI) | payer OTHER ==
[2023-04-19 10:06] LABS: African American GFR (CKD) >90 (>60 ml/min/1.73 sqM); Blood Urea Nitrogen 14 mg/dL (7-17); Non-African American GFR(CKD) >90 (>60 ml/min/1.73 sqM)
--- NOTE | 2023-04-19 13:20 | CT ---
EXAMINATION TYPE: CT ChestAbdPelvis w con DATE OF EXAM: 04/19/2023 COMPARISON: 07/21/2021 HISTORY: 43-year-old female C18.6, descending Colon CA TECHNIQUE: Contiguous axial scanning of the chest, abdomen, and pelvis performed with IV Contrast, pa tient injected with 100 mL of Isovue 300. Delayed images through the kidneys were obtained. Coronal/s agittal reconstructions performed. CT DLP: 1373 mGycm Automated exposure control for dose reduction was used. FINDINGS: CHEST: Heart normal size without pericardial effusion. Aorta normal caliber with conventional vessel branching anatomy. There is a 2.6 cm nodule posterior and inferior to the left thyroid lobe for which further ultrasound evaluation is recommended. Otherwise, no thoracic lymphadenopathy. No consolidation or pleural effusion. ABDOMEN: Small hiatal hernia. Liver enlarged at 20.7 cm. Low attenuation of the hepatic parenchyma. Portal venous system is patent. No focal liver lesion. A couple punctate layering gallstones. No abnormal gallbladder distention. Glands, kidneys, spleen, and pancreas within normal limits. No dilated small bowel, free fluid, free air. No mesenteric or retroperitoneal lymphadenopathy. Patulous stool-filled appendix. Moderate stool burden. No pericolonic inflammatory change seen. There is severe breathing motion artifact limiting detailed assessment of the colon. Suspect a staple line at the proximal sigmoid related to prior resection and reanastomosis. Pelvis: Bladder nondistended. Pelvic phleboliths. Uterus anteverted. Both ovaries are visualized. No abnormal fluid collection in the pelvis or pelvic lymphadenopathy. Pelvic phleboliths are noted. Mild presac ral edema. BONES: The patient's grade 1 anterolisthesis is not well characterized due to the extensive breathing motion . However, we note the presence of bilateral L5 pars defects. No osseous destructive process seen. IMPRESSION: 1. STAPLE LINE AT THE PROXIMAL SIGMOID COLON FROM PRIOR RESECTION AND REANASTOMOSIS. 2. THERE IS SEVERE BREATHING MOTION ARTIFACT. ALLOWING FOR THIS LIMITATION, NO CONVINCING FINDINGS OF RECURRENT OR METASTATIC DISEASE. 3. A 2.6 CM NODULE BELOW THE LEFT LOBE OF THE THYROID GLAND COULD REPRESENT AN EXOPHYTIC THYROID NODU LE. RECOMMEND FURTHER ULTRASOUND EVALUATION AND POSSIBLE FNA. 4. HEPATOMEGALY WITH HEPATIC STEATOSIS. SMALL HIATAL HERNIA. 5. BILATERAL L5 PARS DEFECTS WITH GRADE 1 ANTEROLISTHESIS AT L5-S1.
== END | disposition home or self-care (01) ==
LOC: RADCTMAIN 09:08
PROVIDERS: ATTEND Internal Medicine Hematology & Oncology
DX: C18.6 Malignant neoplasm of descending colon (principal); K76.0 Fatty (change of) liver, not elsewhere classified; R16.0 Hepatomegaly, not elsewhere classified; M43.17 Spondylolisthesis, lumbosacral region; E04.1 Nontoxic single thyroid nodule
CPT/HCPCS: 82565; 84520; 71260; 74177; 36415; Q9967

== ENCOUNTER → 2023-12-11 | Outpatient (CLI) | payer OTHER ==
[2023-12-11 15:48] LABS: Basophils # (A) 0.07 X 10*3/uL (0.00-0.10); Basophils % (A) 0.6 %; Eosinophils # (A) 0.13 X 10*3/uL (0.04-0.35); Eosinophils % (A) 1.1 %; HCT 44.8 % (37.2-46.3); HGB 15.2 g/dL (12.0-15.0); Lymphocytes # (A) 2.73 X 10*3/uL (0.90-5.00); Lymphocytes % (A) 23.8 %; MCH 31.1 pg (27.0-32.0); MCHC 33.9 g/dL (32.0-37.0); MCV 91.8 FL (80.0-97.0); Mean Platelet Volume 8.7 FL (9.5-12.2); Monocytes # (A) 0.85 X 10*3/uL (0.20-1.00); Monocytes % (A) 7.4 %; NRBC Per 100 WBC 0 X 10*3/uL (0.00-0.01); Neutrophils % (A) 66.2 %; Platelet Count 234 X 10*3/uL (140-440); RBC 4.88 X 10*6/uL (4.10-5.20); RDW 12.2 % (11.5-14.5); WBC 11.48 X 10*3/uL (4.50-10.00)
[2023-12-11 16:01] LABS: ALT 32 U/L (8-44); AST 27 U/L (13-35)
== END | disposition home or self-care (01) ==
LOC: LABWHC1 10:43
PROVIDERS: ATTEND Dermatology MOHS-Micrographic Surgery
DX: L40.0 Psoriasis vulgaris (principal)
CPT/HCPCS: 36415; 82565; 84450; 84460; 85025; 86480

== ENCOUNTER → 2024-01-31 | Outpatient (CLI) | payer OTHER ==
[2024-01-31 10:23] LABS: African American GFR (CKD) >90 (>60 ml/min/1.73 sqM); Blood Urea Nitrogen 15 mg/dL (7-17); Non-African American GFR(CKD) >90 (>60 ml/min/1.73 sqM)
--- NOTE | 2024-02-06 14:20 | CT ---
EXAMINATION TYPE: CT Chest Abd Pelvis w con CT DLP: 1301.7 mGycm, Automated exposure control for dose reduction was used. DATE OF EXAM: 01/31/2024 11:34 AM COMPARISON: None. CLINICAL INDICATION:Female, 43 years old with history of C18.6 COLON CANCER; [facility], f/u colon ca Technique: CT Chest Abd Pelvis w con; Multiple axial images were obtained. Two-dimensional coronal an d sagittal reconstructions were obtained. Contrast used:100 mL of Isovue 300 with IV Contrast, Oral contrast used: with Oral Contrast Findings: CHEST: LUNGS/ PLEURA: The lung parenchyma appears unremarkable. AIRWAY: Patent and unremarkable. HEART: Size within normal limits. No pericardial effusion. MEDIASTINUM: No gross evidence of adenopathy. VASCULATURE: No aortic aneurysm. MUSCULOSKELETAL: No acute osseous abnormalities. SOFT TISSUES/LYMPH NODES: 2.2 cm nodule subjacent to the left lobe of the thyroid gland. Ultrasound g uided FNA might be recommended if ultrasound characteristics of the nodule meet the TI-RADS guideline s based on ultrasound imaging characteristics of the nodule. LOWER NECK: 2.2 cm nodule subjacent to the left lobe of the thyroid gland. Ultrasound guided FNA migh t be recommended if ultrasound characteristics of the nodule meet the TI-RADS guidelines based on ult rasound imaging characteristics of the nodule.. ABDOMEN: ABDOMEN LIVER: Unremarkable GALLBLADDER AND BILE DUCTS: A tiny gallstone is identified. PANCREAS: Unremarkable. SPLEEN: Unremarkable. ADRENAL GLANDS: Unremarkable. KIDNEYS AND URETERS: No evidence of hydronephrosis or renal calculus. The ureters are unremarkable. PELVIS BLADDER: Unremarkable REPRODUCTIVE: Unremarkable. ABDOMEN & PELVIS STOMACH AND BOWEL: Stomach and duodenum are unremarkable. Anastomosis in the sigmoid colon appears in tact. No evidence of bowel obstruction. PERITONEUM: No evidence of pneumoperitoneum or free fluid. VASCULATURE: No evidence of aortic aneurysm. MUSCULOSKELETAL: No acute osseous abnormalities LYMPH NODES: No gross evidence for lymphadenopathy. SOFT TISSUE/ABDOMINAL WALL: Unremarkable IMPRESSION: No convincing evidence of metastatic. No acute process. Surgical anastomosis in the sigmoid colon is intact. 2.2 cm nodule subjacent to the left lobe of the thyroid gland. Ultrasound guided FNA might be recomme nded if ultrasound characteristics of the nodule meet the TI-RADS guidelines based on ultrasound imag ing characteristics of the nodule..
== END | disposition home or self-care (01) ==
LOC: RADCTMAIN 09:27
PROVIDERS: ATTEND Internal Medicine Hematology & Oncology
DX: E04.1 Nontoxic single thyroid nodule (principal); C18.6 Malignant neoplasm of descending colon; R05.9 Cough, unspecified; Z71.3 Dietary counseling and surveillance; Z98.890 Other specified postprocedural states
CPT/HCPCS: 82565; 84520; 71260; 74177; 36415; Q9967

== ENCOUNTER → 2024-07-13 | Outpatient (CLI) | payer OTHER ==
[2024-07-13 14:53] LABS: African American GFR (CKD) >90 (>60 ml/min/1.73 sqM); Blood Urea Nitrogen 15 mg/dL (7-17); Non-African American GFR(CKD) >90 (>60 ml/min/1.73 sqM)
--- NOTE | 2024-07-14 22:43 | CT ---
EXAMINATION TYPE: CT ChestAbdPelvis w con DATE OF EXAM: 07/13/2024 INDICATION: COLON CA COMPARISON: 01/31/2024 CT DLP: 1697 mGycm CONTRAST: Performed with Oral Contrast and with IV Contrast, patient injected with 100 ml mL of Isovue 300. TECHNIQUE: Axial images at 5 mm thick sections. Reconstructed images in the coronal plane. Delayed images through the kidneys. FINDINGS: CT CHEST: The thyroid appears stable. This is somewhat heterogenous and has a large lobe or adjacent mass infer ior to the left thyroid lobe. This was present previously and is stable. No suspicious lung nodules or focal infiltrates are present. No enlarged mediastinal or hilar adenopathy is evident. The ascending aorta diameter at the level of the main pulmonary artery is 3.0 cm. The main pulmonary artery diameter at the bifurcation is 2.[address] ABDOMEN: Liver: There is mild fatty infiltration to liver. No discrete masses are evident. Spleen: Normal Pancreas: Normal Adrenal glands: The adrenal glands are normal. Gallbladder: Punctate calcification is within the gallbladder. Kidneys: No masses are evident. No hydronephrosis is present. No cysts are present. Delayed images were obtained through the kidneys, which remain unremarkable. Aorta: Vascular calcification is within the aorta. Inferior vena cava: Normal. CT PELVIS: Loops of bowel within the abdomen and pelvis are normal. Sigmoid anastomosis is widely patent with f ecal debris passing through. No obvious stenosis. There are loops of bowel which are incompletely d istended or lack oral contrast limiting their evaluation. Appendix: The appendix appears somewhat distended and contains air and fecal debris. However, inflamm atory changes adjacent is not identified. This sits in the lateral retrocecal region and right paraco lic gutter. This is stable from prior exam. Urinary bladder: Normal. Genitourinary structures: Uterus appears normal. The right ovary may have a 2.4 cm simple appearing c yst. Couple of follicles are likely on the left ovary. Smaller cysts may be on the anterior right ova ry. No free fluid is within the pelvis. Osseous structures: No suspicious lytic or sclerotic lesions. Spondylolysis of L5 is evident. IMPRESSION: 1. No suspicious changes to suggest metastatic disease. 2. Ovarian cysts. 3. Persistent stable enlarged thyroid. 4. Spondylolysis of L5. #5 punctate gallstone present
== END | disposition home or self-care (01) ==
LOC: RADCTMAIN 13:57
PROVIDERS: ATTEND Internal Medicine Hematology & Oncology
DX: C18.6 Malignant neoplasm of descending colon (principal); N83.209 Unspecified ovarian cyst, unspecified side; E04.9 Nontoxic goiter, unspecified; K80.20 Calculus of gallbladder without cholecystitis without obstruction; M43.06 Spondylolysis, lumbar region
CPT/HCPCS: 36415; 71260; 74177; 82565; 84520

== ENCOUNTER → 2025-01-18 | Outpatient (CLI) | payer OTHER | END | disposition home or self-care (01) | LOC: LABWHC1 11:17 | PROVIDERS: ATTEND Dermatology MOHS-Micrographic Surgery | DX: L40.0 Psoriasis vulgaris (principal); Z79.899 Other long term (current) drug therapy | CPT/HCPCS: 36415; 86480 ==

== ENCOUNTER → 2025-02-10 | Outpatient (CLI) | payer OTHER ==
--- NOTE | 2025-02-10 16:33 | MM ---
Reason for Exam: Screening (asymptomatic). Last mammogram was performed 1 year(s) and 9 month(s) ago. Patient History: Menarche at age 12. Patient has no children. Premenopausal. Last menstrual period: 01/10/2025 Risk Values: Trish 5 year model risk: 0.9%. NCI Lifetime model risk: 10.6%. Prior Study Comparison: 05/24/2023 Bilateral MG 3D screening mammo w/cad, [facility]. Tissue Density: The breasts are heterogeneously dense, which may obscure small masses. Findings: Analyzed By CAD. Asymmetric density superior anterior left MLO view is unchanged. There is no suspicious group of microcalcifications or new suspicious mass in either breast. Overall Assessment: Benign, BI-RAD 2 Management: Screening Mammogram of both breasts in 1 year. Patient should continue monthly self-breast exams. A clinical breast exam by your physician is recommended on an annual basis. This exam should not preclude additional follow-up of suspicious palpable abnormalities. Note on Trish scores and lifetime risk: 1. A Trish score greater than 3% is considered moderate risk. If this is the case, consider specialist referral to assess eligibility for a risk reducing agent. 2. If overall lifetime risk for the development of breast cancer is 20% or higher, the patient may qualify for future screening with alternating mammogram and breast MRI. [facility], , 02/10/2025 4:30 PM. Electronically signed and approved by: Colt Graham M.D. Radiologist
== END | disposition home or self-care (01) ==
LOC: RADMAMWWP 15:21
PROVIDERS: ATTEND Internal Medicine Hematology & Oncology
DX: Z12.31 Encounter for screening mammogram for malignant neoplasm of breast (principal); R92.333 Mammographic heterogeneous density, bilateral breasts; E11.9 Type 2 diabetes mellitus without complications; E04.1 Nontoxic single thyroid nodule; C18.6 Malignant neoplasm of descending colon; Z71.3 Dietary counseling and surveillance
CPT/HCPCS: 77063; 77067

== ENCOUNTER → 2025-05-04 | Outpatient (CLI) | payer OTHER ==
[2025-05-04 11:41] LABS: African American GFR (CKD) >90 (>60 ml/min/1.73 sqM); Blood Urea Nitrogen 15 mg/dL (7-17); Non-African American GFR(CKD) >90 (>60 ml/min/1.73 sqM)
--- NOTE | 2025-05-04 14:29 | CT ---
EXAMINATION TYPE: CT ChestAbdPelvis w con DATE OF EXAM: 05/04/2025 COMPARISON: 07/13/2024 CLINICAL INDICATION: Female, 45 years old with history of C18.6 MALIGNANT NEOPLASM OF DESCENDING COLO N CT DLP: 1474.3 mGycm Automated exposure control for dose reduction was used. CONTRAST: CT scan of the chest, abdomen and pelvis is performed with Oral Contrast and with IV Contrast, patien t injected with 100ml mL of Isovue 300. FINDINGS: CT chest: There is a stable mild goiter There is no suspicious lung mass or nodule. There is no abnormal airspace/consolidative density or abnormal interstitial density. There is no pleural effusion, pleural thickening or pneumothorax. The great vessels and chest are normal there is no mediastinal, hilar or axillary adenopathy. No focal osseous lesions are seen. CT abdomen and pelvis: There is a small gallstone. There is no biliary ductal dilatation. There is no focal mass or organomegaly involving the liver, pancreas, spleen or adrenal glands.. There is no solid renal mass or hydronephrosis. There is no retroperitoneal adenopathy or hemorrhage in the caliber of the abdominal aorta is normal. The bowel loops are normal in caliber and there is no dilatation or obstruction. There are anastomoti c sutures in the sigmoid colon. No inflammatory changes identified in the bowel wall and mesentery. T here is no free intracranial air or fluid. There is no pelvic mass or adenopathy. . There is a grade 1 anterolisthesis of L5 on S1 secondary to bilateral spondylolysis of L5. IMPRESSION: 1. No evidence of recurrent metastatic disease. 2. Stable small gallstone. 3. Stable spondylolysis and spondylolisthesis at the L5-S1 level. 4. Stable mild goiter [facility], , 05/04/2025 2:26 PM
== END | disposition home or self-care (01) ==
LOC: RADCTMAIN 10:54
PROVIDERS: ATTEND Internal Medicine Hematology & Oncology
DX: C18.6 Malignant neoplasm of descending colon (principal); E04.1 Nontoxic single thyroid nodule; E11.9 Type 2 diabetes mellitus without complications; K80.20 Calculus of gallbladder without cholecystitis without obstruction; Z71.3 Dietary counseling and surveillance; M43.17 Spondylolisthesis, lumbosacral region
CPT/HCPCS: 82565; 84520; 71260; 74177; 36415; Q9967